=== PATIENT | male | born 1950 | race Caucasian/White ===

== ENCOUNTER 2018-03-01 07:30 | Inpatient (IN) ==
[2018-03-04] MEDS ORDERED: Cardioplegic Irr Soln 2,000 ML IRRIGATION ONE (07:44)
[2018-03-04] MEDS ORDERED: Potassium Chloride Inj 40 MEQ/20 ML Vial ONE ×2 (07:44)
[2018-03-04] MEDS ORDERED: Heparin 10,000 UNITS/10 ML Vial (for IV use) ONE (07:45)
[2018-03-04] MEDS ORDERED: Albumin Human 25% Inj 50 ML IV.SIG ONE (07:46)
[2018-03-04] MEDS ORDERED: Heparin - SQ 10,000 UNITS/ML Vial ONE (08:59)
[2018-03-04] MEDS ORDERED: MethylPREDNISolone Sod Succinate Inj 125 MG/2 ML Vial ONE (08:59)
[2018-03-04] MEDS ORDERED: Metoprolol Tartrate 25 MG Tablet PO ONE (09:56)
[2018-03-04] MEDS ORDERED: Chlorhexidine Gluconate 2% 1 Pack (2 Cloths) TOPICAL ONE (09:56)
[2018-03-04] MEDS ORDERED: Sodium Chlor 0.9% Inj 500 ML IV.SIG SCH (10:00)
[2018-03-04] MEDS ORDERED: Sodium Chloride 0.9% Irr Bot 500 ML, ceFAZolin Inj 500 MG IRRIGATION SCH ×2 (10:15)
[2018-03-04] MEDS ORDERED: Metoprolol Tartrate 25 MG Tablet PO SCH (10:15)
[2018-03-04] MEDS ORDERED: Insulin Regular (For Infusion) 100 UNIT in Sodium Chlor 0.9% Inj 99 ML IV.SIG SCH (11:00)
[2018-03-04] MEDS ORDERED: Chlorhexidine 4% Topical 120 APPLIC/120 ML Bottle TOPICAL SCH (11:00)
[2018-03-04] MEDS ORDERED: ceFAZolin 2 GM/NS 100 ML IV; Q8H IV.SIG SCH ×2 (11:00)
[2018-03-04] MEDS ORDERED: Sodium Chlor 0.9% Inj 77.5 ML, Papaverine Inj 60 MG, Nitroglycerin Inj 100 MCG, dilTIAZ... IRRIGATION SCH ×3 (11:30)
[2018-03-04] MEDS ORDERED: Sodium Chlor 0.9% Inj 250 ML IV.CONT ONE (12:04)
[2018-03-04] MEDS ORDERED: Sodium Chlor 0.9% Inj 100 ML IV.CONT ONE (12:04)
[2018-03-04] MEDS ORDERED: Sodium Bicarbonate 8.4% Inj 50 MEQ/50 ML Syringe IV.CONT ONE (12:04)
[2018-03-04] MEDS ORDERED: Tranexamic Acid Inj 1,000 MG/10 ML Ampul IV.PUSH ONE (13:00)
[2018-03-04] MEDS ORDERED: Heparin - SQ 10,000 UNITS/ML Vial OTHER ONE (13:54)
[2018-03-04] MEDS ORDERED: Dexmedetomidine Inj 200 MCG/2 ML Vial IV.CONT ONE (15:30)
[2018-03-04] MEDS ORDERED: Protamine Sulfate Inj 50 MG/5 ML Vial IV.CONT ONE (15:31)
--- NOTE | 2018-03-04 15:33 | P.PNCV ---
- Note Subjective/Hospital Course: 67/ male presented to [facility] having developed exertional chest pain. He underwent LHC which shoed 2 vessel CAD involving LAD and RCA EF 45-50% PMH: unstable angina, prior [place], HLP PAD ( claudication), HTN, DM, GERD electively admitted today for surgery 03/04 surgery: Objective: Vital Signs - 24 hr 03/04/18 10:17 Temperature 99.1 F Pulse Rate 69 Respiratory Rate 18 Blood Pressure 149/85 H Pulse Oximetry 93 L Labs: Laboratory Results - last 12 hr 03/04/18 03/04/18 09:50 09:55 Nasal Screen MRSA (PCR) Not detected Blood Type O Positive Antibody Screen Negative MTS Gel Crossmatch See Detail Bld Prod Order Comment - Plan (5) Diabetes mellitus (5) Diabetes mellitus Qualifiers: Diabetes mellitus type: type 2
[2018-03-04] MEDS ORDERED: Calcium Chloride Inj 1 GM/10 ML Syringe IV.CONT ONE (15:45)
[2018-03-04] MEDS ORDERED: Post-op Orders (for Pharmacy) OTHER STA (16:03)
[2018-03-04] MEDS ORDERED: RESP: Racemic Epinephrine 2.25% 0.5 ML Neb NEB PRN (16:03)
[2018-03-04] MEDS ORDERED: Potassium Chlor 20 mEq Premix 20 MEQ/100 ML PIGGYBACK IV.SIG PRN ×2 (16:03)
[2018-03-04] MEDS ORDERED: Insulin Regular (For Infusion) 100 UNIT in Sodium Chlor 0.9% Inj 99 ML IV.CONT PRN (16:03)
[2018-03-04] MEDS ORDERED: Albumin Human 5% Inj 250 ML IV.SIG PRN (16:03)
[2018-03-04] MEDS ORDERED: Magnesium Sulfate Inj 2 GM in Sodium Chlor 0.9% Inj 96 ML IV.SIG PRN ×4 (16:03)
[2018-03-04] MEDS ORDERED: Dextrose 50% in Water 50 ML Vial IV.PUSH PRN (16:03)
[2018-03-04] MEDS ORDERED: Clevidipine Inj 25 MG/50 ML VIAL IV.CONT PRN (16:03)
[2018-03-04] MEDS ORDERED: Calcium Chloride Inj 1 GM/10 ML Syringe IV.PUSH PRN (16:03)
[2018-03-04] MEDS ORDERED: Calcium Chloride Inj 1 GM in Sodium Chlor 0.9% Inj 100 ML IV.SIG PRN (16:03)
[2018-03-04] MEDS ORDERED: Dexmedetomidine Inj 200 MCG in Sodium Chlor 0.9% Inj 48 ML IV.CONT PRN (16:03)
--- NOTE | 2018-03-04 16:15 | P.OP ---
- Preoperative Diagnosis (1) CAD (coronary artery disease), [place] coronary artery (2) Unstable angina - Postoperative Diagnosis (1) CAD (coronary artery disease), [place] coronary artery (2) Unstable angina Date of procedure: 03/04/18 Procedure: CABG x 3 POTTER to LAD - good SVG to PDA - fair SVG to D1 - good EVH Anesthesia: FARHANA Surgeon: Juana Garcia MD Clock And Watch Assembler: Joanne Preciado Pathology: none sent Operation and Findings: The risks, benefits, complications, treatment options, and expected outcomes were discussed with the patient. The possibilities of reaction to medication, pulmonary aspiration, perforation of viscus, bleeding, recurrent infection, the need for additional procedures, failure to diagnose a condition, and creating a complication requiring transfusion or operation were discussed with the patient. The patient concurred with the proposed plan, giving informed consent. The site of surgery properly noted/marked. The patient was taken to Operating Room, identified as Jeremias iPerre and the procedure verified as CABG, EVH. A Time Out was held and the above information confirmed. Standard monitoring lines and [place] catheter were placed. General anesthesia was induced. The patient was prepped and draped in a sterile fashion. A median sternotomy was performed and electrocautery was used to obtain hemostasis. The left internal mammary artery was procured as a pedicle from the 7th rib to the 1st rib in the usual manner. Simultaneously left greater saphenous vein was procured from the left leg using a minimally invasive endoscopic technique. The vein was prepared for anastomosis and the leg wound was irrigated and closed in 2 layers. The pericardium was opened and a pericardial sling was created using interrupted 0 silk sutures. The patient was heparinized for cardiopulmonary bypass and the distal mammary pedicle was instrumented for anastomosis. The heart was instrumented for cardiopulmonary bypass in the usual manner. Antegrade blood cardioplegia was employed. The patient was placed on cardiopulmonary bypass. An aortic cross-clamp was applied and the heart was arrested using cold blood cardioplegia. Antegrade cardioplegia was administered after he each anastomosis. After adequate arrest, the distal right coronary circulation was investigated and the PDA was opened with a [place] blade and found to be a 1 millimeter fair target. Saphenous vein was approximated to the PDA artery using a running 7 0 Prolene suture. The graft was measured for length and orientation and the proximal anastomosis was constructed to the ascending aorta using a running 5 0 Prolene suture after creating an aortotomy with a 5 millimeter punch. The 1st diagonal artery was then opened with a [place] blade and found to be a 1.5 millimeter good target. Saphenous vein was approximated to the D1 artery using a running 7 0 Prolene suture. The graft was measured for length and orientation and was suspended from the pericardium. The distal LAD was opened with a [place] blade and found to be a 1.5 millimeter good target. The left internal mammary artery was approximated to the LAD using a running 7 0 Prolene suture. The pedicle was attached to the epicardium using interrupted 5 0 silk suture. The patient was systemically rewarmed and received a hotshot dose of warm blood cardioplegia. The aorta was vented and the proximal anastomosis to the D1 graft was accomplished using a running 5 0 Prolene suture after creating an aortotomy with a 5 millimeter punch. The cross-clamp was removed and all proximal and distal anastomoses were examined for hemostasis. The patient was weaned from cardiopulmonary bypass. Protamine was given. There was no adverse reaction. Decannulation was carried out without incident. Wound was checked for hemostasis which was obtained using electrocautery. A 36 Yi mediastinal and 32 Yi left pleural chest tubes were placed and secured to the skin with 0 silk suture. The sternum was closed with stainless steel wire. The fascia was closed with 1. PDS. The subcutaneous tissue was closed using a running 2-0 Vicryl suture. The skin was closed with 4-0 Monocryl. Sterile dressings were placed. At the end of the operation, all sponge, instruments, and needle counts were correct. The patient was transferred to the CVICU in stable condition. Findings: small pda target XC: 50 min CPB: 66 min Drains: mediastinal x 1 pleural x 1 Complications: none Disposition: to CVICU in stable condition
[2018-03-04] MEDS ORDERED: fentaNYL Citrate Inj 250 MCG/5 ML Ampul ONE (16:55)
--- NOTE | 2018-03-04 17:37 | XR ---
EXAM DATE: 03/04/2018 5:30 PM EDT AGE/SEX: 67 years / Male INDICATIONS: Evaluate for cardiac disease. CLINICAL DATA: This is the patient's initial encounter. Patient reports that signs and symptoms have been present for 1 day and indicates a pain score of Nonresponsive. MEDICAL/SURGICAL HISTORY: Non-responsive. CABG. COMPARISON: No prior exams available for comparison. FINDINGS: A single AP view of the chest was performed. Endotracheal tube with distal tip approximately 6 cm ab ove the buddy at the level of the midclavicular heads. Right IJ central venous catheter with distal tip at the level of the cavoatrial junction. Left-sided chest tube. Mediastinal drain. Nasoenteric tu be. There is likely a moderate left pleural effusion with associated left basilar atelectasis. Mild i nterstitial prominence throughout both lungs. No appreciable pneumothorax. The cardiomediastinal cont ours are mildly prominent. Sternotomy wires. Osseous structures are intact. CONCLUSION: 1. Endotracheal tube, right IJ central venous catheter, nasoenteric tube, mediastinal drain, and lef t chest tube are in place. 2. Probable moderate left pleural effusion with associated atelectasis. 3. Cardiomediastinal contours are mildly prominent. 4. Mild interstitial prominence bilaterally. 5. Findings suggests pulmonary edema, but should be clinically correlated. Electronically signed by: Elayne Burris MD 03/04/2018 5:35 PM EDT
[2018-03-04] MEDS: Mupirocin 2% Nasal Oint Topical Syringe EACH NARE SCH (20:46)
[2018-03-04] MEDS: fentaNYL Citrate Inj 100 MCG/2 ML Ampul IV.PUSH PRN ×2 (21:04→22:24)
[2018-03-04] MEDS: Potassium Chlor 20 mEq Premix 20 MEQ/100 ML PIGGYBACK IV.SIG PRN ×2 (21:14→23:20)
[2018-03-04] MEDS: Amiodarone 200 MG Tablet PO SCH (22:07)
--- NOTE | 2018-03-05 05:20 | XR ---
EXAM DATE: 03/05/2018 4:21 AM EDT AGE/SEX: 67 years / Male INDICATIONS: Shortness of breath, possible pneumothorax. CLINICAL DATA: This is the patient's subsequent encounter. Patient reports that signs and symptoms h ave been present for 2 days and indicates a pain score of 7/10. MEDICAL/SURGICAL HISTORY: None. CABG. COMPARISON: [facility], CHEST 1V SINGLE AP, 03/04/2018. . FINDINGS: Patient has been extubated and NGT removed. Right IJ central line, mediastinal drain and left-sided c hest tube are stable. No significant pneumothorax. Mild bibasilar airspace disease. Cardiomegaly saw contours are stable. Remainder of exam is unchanged. CONCLUSION: 1. Patient has been extubated with NG tube removed. 2. No significant pneumothorax. 3. Evolving expected postoperative features with persistent mild bibasilar airspace disease, likely atelectasis. Electronically signed by: Alfred Hernandez MD 03/05/2018 5:19 AM EDT
[2018-03-05] MEDS: Amiodarone 200 MG Tablet PO SCH ×3 (05:24→21:00)
[2018-03-05 05:53] LABS: Hematocrit 35.3 % (39.0-51.0); Hemoglobin 11.8 gm/dL (13.0-17.0); Mean Corpuscular HGB Conc 33.3 % (32.0-36.0); Mean Corpuscular Volume 92.9 fL (80.0-100.0); Mean Platelet Volume 8.8 fL (7.0-11.0); Platelet Count 162 th/mm3 (150-450); Red Blood Count 3.79 mil/mm3 (4.50-5.90); Red Cell Distribution Width 13.3 % (11.6-17.2); White Blood Count 10.8 th/mm3 (4.0-11.0)
[2018-03-05 06:16] LABS: Anion Gap 9 meq/L (5-15); Blood Urea Nitrogen 13 mg/dL (7-18); Calcium 8.4 mg/dL (8.5-10.1); Carbon Dioxide 24.6 meq/L (21.0-32.0); Chloride 109 meq/L (98-107); Glomerular Filtration Rate Greater Than 89 mL/min (>89); Glucose,Random 131 mg/dL (74-106); Potassium 4.3 meq/L (3.5-5.1); Sodium 143 meq/L (136-145)
[2018-03-05] MEDS: Mupirocin 2% Nasal Oint Topical Syringe EACH NARE SCH ×3 (08:54→21:05)
[2018-03-05] MEDS: Pantoprazole Sodium 20 MG DR Tablet PO SCH (08:54)
[2018-03-05] MEDS ORDERED: Dextrose 50% in Water 50 ML Vial IV.PUSH PRN (10:21)
[2018-03-05] MEDS ORDERED: Bisacodyl 10 MG Supp RECTAL PRN (10:21)
[2018-03-05] MEDS ORDERED: Insulin Detemir Inj 1,000 UNIT/10 ML Vial SQ ONE (10:21)
--- NOTE | 2018-03-05 10:29 | P.PNCV ---
- Note CVT: Post Op Day #: 1 Subjective/Hospital Course: 67/ male presented to [facility] having developed exertional chest pain. He underwent LHC which shoed 2 vessel CAD involving LAD and RCA EF 45-50% PMH: unstable angina, prior [place], HLP PAD ( claudication), HTN, DM, GERD electively admitted today for surgery 03/04 surgery: 03/05/18 Doing well, no complaints Objective: Vital Signs - 24 hr 03/04/18 16:40 03/04/18 18:00 03/04/18 18:25 Temperature 98.0 F 97.1 F L Pulse Rate 60 65 Respiratory Rate 12 17 Blood Pressure 86/52 L 137/63 Pulse Oximetry 96 95 95 03/04/18 19:00 03/04/18 20:00 03/04/18 20:35 Temperature 98.1 F Pulse Rate 62 65 Respiratory Rate 18 Blood Pressure 142/63 H Pulse Oximetry 95 95 03/04/18 20:40 03/04/18 22:00 03/04/18 23:00 Temperature Pulse Rate 74 Respiratory Rate 18 18 Blood Pressure Pulse Oximetry 95 03/05/18 00:00 03/05/18 03:00 03/05/18 04:00 Temperature 97.9 F 98.9 F Pulse Rate 72 77 82 Respiratory Rate 18 18 Blood Pressure 153/69 H 149/65 H Pulse Oximetry 92 L 96 96 03/05/18 07:00 03/05/18 08:00 Temperature 98.3 F Pulse Rate 82 82 Respiratory Rate 16 Blood Pressure 139/61 Pulse Oximetry 95 Labs: Laboratory Results - last 12 hr 03/04/18 03/04/18 03/05/18 22:18 23:47 03:51 WBC RBC Hgb Hct MCV MCH MCHC RDW Plt Count MPV Sodium Potassium Chloride Carbon Dioxide Anion Gap BUN Creatinine Estimated GFR POC Glucose 99 123 H 117 H Random Glucose Calcium Magnesium 03/05/18 03/05/18 03/05/18 05:05 05:05 05:13 WBC 10.8 RBC 3.79 L Hgb 11.8 L Hct 35.3 L MCV 92.9 MCH 31.0 MCHC 33.3 RDW 13.3 Plt Count 162 MPV 8.8 Sodium 143 Potassium 4.3 Chloride 109 H Carbon Dioxide 24.6 Anion Gap 9 BUN 13 Creatinine 0.65 Estimated GFR Greater than 89 POC Glucose 122 H Random Glucose 131 H Calcium 8.4 L Magnesium 2.0 03/05/18 03/05/18 03/05/18 06:33 07:29 08:52 WBC RBC Hgb Hct MCV MCH MCHC RDW Plt Count MPV Sodium Potassium Chloride Carbon Dioxide Anion Gap BUN Creatinine Estimated GFR POC Glucose 86 122 H 181 H Random Glucose Calcium Magnesium Result Diagrams: 03/05/18 05:05 03/05/18 05:05 Imaging: Chest X-Ray 03/05/18 05:00 CONCLUSION: 1. Patient has been extubated with NG tube removed. 2. No significant pneumothorax. 3. Evolving expected postoperative features with persistent mild bibasilar airspace disease, likely atelectasis. Cardiovascular: RRR Pulmonary: CTA GI/: NABS Incision: dry and intact CT: ~660ml/12hrs - Plan (1) CAD (coronary artery disease), [place] coronary artery (3) Hyperlipidemia (4) Hypertension (5) Diabetes mellitus Transfer to stepdown Advance diet Ambulate x 6, up to chair Start BB Cont. statin, ASA Diurese Cont. chest tubes remove pleitez (1) CAD (coronary artery disease), [place] coronary artery Qualifiers: [place] vs. transplanted heart: [place] heart Associated angina: with stable angina Qualified Code(s): I25.118 - Atherosclerotic heart disease of [place] coronary artery with other forms of angina pectoris (3) Hyperlipidemia Qualifiers: Hyperlipidemia type: unspecified Qualified Code(s): E78.5 - Hyperlipidemia, unspecified (4) Hypertension Qualifiers: Hypertension type: essential hypertension Qualified Code(s): I10 - Essential (primary) hypertension (5) Diabetes mellitus Qualifiers: Diabetes mellitus type: type 2 Diabetes mellitus complication status: with circulatory complication Diabetes mellitus complication detail: with other circulatory complications
[2018-03-05] MEDS: Metoprolol Tartrate 25 MG Tablet PO SCH ×2 (11:03→21:03)
--- NOTE | 2018-03-05 11:58 | ECG ---
Date Performed: 03/05/2018 Time Performed: 04:28:32 PTAGE: 67 years EKG: Sinus rhythm Left axis deviation Borderline ECG NO PREVIOUS TRACING DOCTOR: Myron Stack Interpretating Date/Time 03/05/2018 11:56:05
[2018-03-05] MEDS: Insulin NovoLOG Aspart Correctional Sugar Inj SQ SCH ×3 (14:01→22:13)
[2018-03-05] MEDS: Docusate Sodium 100 MG Capsule PO SCH (21:01)
[2018-03-06] MEDS: Metoprolol Inj 5 MG/5 ML Vial IV.PUSH PRN ×2 (00:48→02:28)
[2018-03-06] MEDS: Insulin NovoLOG Aspart Correctional Sugar Inj SQ SCH ×5 (02:09→21:12)
[2018-03-06 04:28] LABS: Baso % (Auto) 0.2 % (0.0-2.0); Eos % (Auto) 0.1 % (0.0-4.0); Hematocrit 33.3 % (39.0-51.0); Hemoglobin 11.1 gm/dL (13.0-17.0); Lymph # (Auto) 2.2 th/mm3 (1.0-4.8); Lymph % (Auto) 16.4 % (9.0-44.0); Mean Corpuscular HGB Conc 33.4 % (32.0-36.0); Mean Corpuscular Hemoglobin 30.9 pg (27.0-34.0); Mean Corpuscular Volume 92.5 fL (80.0-100.0); Mean Platelet Volume 9.1 fL (7.0-11.0); Mono # (Auto) 1.1 th/mm3 (0.0-0.9); Mono % (Auto) 8.2 % (0.0-8.0); Neut # (Auto) 9.9 th/mm3 (1.8-7.7); Neut % (Auto) 75.1 % (16.0-70.0); Platelet Count 164 th/mm3 (150-450); Red Cell Distribution Width 13.4 % (11.6-17.2); White Blood Count 13.2 th/mm3 (4.0-11.0)
[2018-03-06 04:49] LABS: Calcium 8.1 mg/dL (8.5-10.1); Carbon Dioxide 28.6 meq/L (21.0-32.0); Magnesium 1.8 mg/dL (1.5-2.5); Potassium 4.3 meq/L (3.5-5.1)
[2018-03-06] MEDS: Amiodarone 200 MG Tablet PO SCH ×3 (05:50→21:11)
[2018-03-06] MEDS ORDERED: D5W BOLUS OVER IV.SIG ONE (07:30)
[2018-03-06] MEDS ORDERED: Magnesium Sulfate Inj 2 GM in Sodium Chlor 0.9% Inj 96 ML IV.SIG ONE (07:30)
[2018-03-06] MEDS ORDERED: AMIODARONE IV.SIG ONE (07:30)
[2018-03-06] MEDS: Docusate Sodium 100 MG Capsule PO SCH ×2 (08:55→20:13)
[2018-03-06] MEDS: Polyethylene Glycol 3350 17 GM Packet PO SCH (08:55)
[2018-03-06] MEDS: Mupirocin 2% Nasal Oint Topical Syringe EACH NARE SCH ×2 (08:55→21:10)
[2018-03-06] MEDS: Multivitamin/Minerals Therapeutic Tablet PO SCH (08:56)
[2018-03-06] MEDS: Pantoprazole Sodium 20 MG DR Tablet PO SCH (08:56)
[2018-03-06] MEDS: Metoprolol Tartrate 25 MG Tablet PO SCH ×2 (08:58→20:12)
--- NOTE | 2018-03-06 11:07 | P.PNCV ---
- Note CVT: Post Op Day #: 2 Subjective/Hospital Course: 67/ male presented to [facility] having developed exertional chest pain. He underwent LHC which shoed 2 vessel CAD involving LAD and RCA EF 45-50% PMH: unstable angina, prior [place], HLP PAD ( claudication), HTN, DM, GERD electively admitted today for surgery 03/04 surgery: 03/05/18 Doing well, no complaints 03/06/18 c/o nausea. AFIB this morning Objective: Vital Signs - 24 hr 03/05/18 11:21 03/05/18 12:50 03/05/18 13:00 Temperature Pulse Rate 74 Respiratory Rate Blood Pressure Pulse Oximetry 96 92 L 03/05/18 13:30 03/05/18 14:00 03/05/18 15:00 Temperature 98.2 F Pulse Rate 80 85 Respiratory Rate 0 L 18 Blood Pressure 147/71 H Pulse Oximetry 94 L 03/05/18 16:00 03/05/18 17:00 03/05/18 17:28 Temperature Pulse Rate 80 78 Respiratory Rate 18 Blood Pressure Pulse Oximetry 03/05/18 18:00 03/05/18 19:00 03/05/18 20:00 Temperature 99 F Pulse Rate 76 87 88 Respiratory Rate 20 Blood Pressure 151/77 H Pulse Oximetry 90 L 03/05/18 21:00 03/05/18 21:26 03/05/18 22:00 Temperature Pulse Rate 96 H 90 Respiratory Rate Blood Pressure Pulse Oximetry 98 03/05/18 23:00 03/06/18 00:00 03/06/18 01:00 Temperature 98.8 F Pulse Rate 90 88 104 H Respiratory Rate 20 Blood Pressure 141/78 H Pulse Oximetry 90 L 03/06/18 02:00 03/06/18 02:06 03/06/18 03:00 Temperature 98.7 F Pulse Rate 114 H 116 H 103 H Respiratory Rate 20 Blood Pressure 142/87 H Pulse Oximetry 91 L 90 L 03/06/18 04:00 03/06/18 05:00 03/06/18 06:00 Temperature Pulse Rate 114 H 106 H 114 H Respiratory Rate Blood Pressure Pulse Oximetry 03/06/18 07:00 03/06/18 08:00 03/06/18 09:00 Temperature 98.5 F Pulse Rate 133 H 110 H 98 H Respiratory Rate 20 Blood Pressure 122/60 Pulse Oximetry 92 L 03/06/18 10:00 Temperature Pulse Rate 99 H Respiratory Rate Blood Pressure Pulse Oximetry Labs: Laboratory Results - last 12 hr 03/06/18 03/06/18 03/06/18 01:58 03:30 03:30 WBC 13.2 H RBC 3.60 L Hgb 11.1 L Hct 33.3 L MCV 92.5 MCH 30.9 MCHC 33.4 RDW 13.4 Plt Count 164 MPV 9.1 Neut % (Auto) 75.1 H Lymph % (Auto) 16.4 [place] % (Auto) 8.2 H Eos % (Auto) 0.1 Baso % (Auto) 0.2 Neut # (Auto) 9.9 H Lymph # (Auto) 2.2 [place] # (Auto) 1.1 H Eos # (Auto) 0.0 Baso # (Auto) 0.0 WBC Differential . Differential Comment Auto diff final Sodium 139 Potassium 4.3 Chloride 104 Carbon Dioxide 28.6 Anion Gap 6 BUN 16 Creatinine 0.89 Estimated GFR 85 L POC Glucose 132 H Random Glucose 124 H Calcium 8.1 L Magnesium 1.8 03/06/18 05:52 WBC RBC Hgb Hct MCV MCH MCHC RDW Plt Count MPV Neut % (Auto) Lymph % (Auto) [place] % (Auto) Eos % (Auto) Baso % (Auto) Neut # (Auto) Lymph # (Auto) [place] # (Auto) Eos # (Auto) Baso # (Auto) WBC Differential Differential Comment Sodium Potassium Chloride Carbon Dioxide Anion Gap BUN Creatinine Estimated GFR POC Glucose 119 H Random Glucose Calcium Magnesium Result Diagrams: 03/06/18 03:30 03/06/18 03:30 Imaging: Chest X-Ray 03/05/18 05:00 CONCLUSION: 1. Patient has been extubated with NG tube removed. 2. No significant pneumothorax. 3. Evolving expected postoperative features with persistent mild bibasilar airspace disease, likely atelectasis. Cardiovascular: IRR Telemetry: AFIB Pulmonary: CTA GI/: NABS Incision: dry and intact CT: ~50ml/12hrs - Plan (1) CAD (coronary artery disease), [place] coronary artery (3) Hyperlipidemia (4) Hypertension (5) Diabetes mellitus IV amio bolus and MgSO4 for AFIB Diurese Remove chest tubes Ambulate/up to chair (1) CAD (coronary artery disease), [place] coronary artery Qualifiers: [place] vs. transplanted heart: [place] heart Associated angina: with stable angina Qualified Code(s): I25.118 - Atherosclerotic heart disease of [place] coronary artery with other forms of angina pectoris (3) Hyperlipidemia Qualifiers: Hyperlipidemia type: unspecified Qualified Code(s): E78.5 - Hyperlipidemia, unspecified (4) Hypertension Qualifiers: Hypertension type: essential hypertension Qualified Code(s): I10 - Essential (primary) hypertension (5) Diabetes mellitus Qualifiers: Diabetes mellitus type: type 2 Diabetes mellitus complication status: with circulatory complication Diabetes mellitus complication detail: with other circulatory complications
[2018-03-06] MEDS: Mag Sulf 1 gm/100 ml Premix 100 ML IV.SIG SCH (12:33)
[2018-03-07] MEDS: Amiodarone 200 MG Tablet PO SCH ×2 (05:30→20:25)
[2018-03-07] MEDS: Docusate Sodium 100 MG Capsule PO SCH ×2 (08:44→20:24)
[2018-03-07] MEDS: Multivitamin/Minerals Therapeutic Tablet PO SCH (08:44)
[2018-03-07] MEDS: Mupirocin 2% Nasal Oint Topical Syringe EACH NARE SCH ×2 (08:44→20:25)
[2018-03-07] MEDS: Insulin NovoLOG Aspart Correctional Sugar Inj SQ SCH ×4 (08:44→20:26)
[2018-03-07] MEDS: Polyethylene Glycol 3350 17 GM Packet PO SCH (08:45)
[2018-03-07] MEDS: Metoprolol Tartrate 25 MG Tablet PO SCH ×2 (08:46→20:25)
[2018-03-07] MEDS: Pantoprazole Sodium 20 MG DR Tablet PO SCH (08:46)
--- NOTE | 2018-03-07 10:07 | P.PNCV ---
- Note Subjective/Hospital Course: 67/ male presented to [facility] having developed exertional chest pain. He underwent LHC which shoed 2 vessel CAD involving LAD and RCA EF 45-50% PMH: unstable angina, prior [place], HLP PAD ( claudication), HTN, DM, GERD electively admitted today for surgery 03/04 surgery: 03/05/18 Doing well, no complaints 03/06/18 c/o nausea. AFIB this morning 03/07 Back in NSR remains on 6 liter nasal cannula / wean as tolerated CXR pending , increase diuresis no further nausea labs pending / pulm toileting rediscussed with pt Objective: Vital Signs - 24 hr 03/06/18 11:00 03/06/18 12:00 03/06/18 13:00 Temperature 98.4 F Pulse Rate 98 H 89 90 Respiratory Rate 20 Blood Pressure 116/74 Pulse Oximetry 94 L 03/06/18 14:00 03/06/18 15:00 03/06/18 16:00 Temperature 98.6 F Pulse Rate 94 H 74 78 Respiratory Rate 20 Blood Pressure 118/72 Pulse Oximetry 95 03/06/18 17:00 03/06/18 18:19 03/06/18 19:00 Temperature 98.6 F Pulse Rate 82 82 81 Respiratory Rate 18 Blood Pressure 120/61 Pulse Oximetry 90 L 03/06/18 20:00 03/06/18 20:30 03/06/18 21:00 Temperature Pulse Rate 79 80 Respiratory Rate Blood Pressure Pulse Oximetry 92 L 03/06/18 22:00 03/06/18 23:00 03/07/18 00:00 Temperature 97.9 F Pulse Rate 82 80 76 Respiratory Rate 22 Blood Pressure 145/70 H Pulse Oximetry 89 L 03/07/18 01:00 03/07/18 01:32 03/07/18 02:00 Temperature Pulse Rate 74 140 H 82 Respiratory Rate Blood Pressure Pulse Oximetry 03/07/18 03:00 03/07/18 04:00 03/07/18 05:00 Temperature 98.7 F Pulse Rate 79 74 74 Respiratory Rate 20 Blood Pressure 130/66 Pulse Oximetry 90 L 03/07/18 05:48 03/07/18 07:00 03/07/18 07:25 Temperature 98.1 F Pulse Rate 79 75 71 Respiratory Rate 20 Blood Pressure 129/67 Pulse Oximetry 90 L 03/07/18 07:26 03/07/18 08:00 03/07/18 09:00 Temperature Pulse Rate 73 71 Respiratory Rate Blood Pressure Pulse Oximetry 90 L 03/07/18 09:17 Temperature Pulse Rate Respiratory Rate 18 Blood Pressure Pulse Oximetry GENERAL: A&O x 3 SKIN: Warm and dry. prevena dressing in place to chest , incision intact to left leg HEAD: Normocephalic. EYES: No scleral icterus. No injection or drainage. NECK: Supple, trachea midline. No JVD or lymphadenopathy. CARDIOVASCULAR: Regular rate and rhythm without murmurs, gallops, or rubs. RESPIRATORY: Breath sounds equal bilaterally. No accessory muscle use. diminished R>L GASTROINTESTINAL: Abdomen soft, non-tender, nondistended. MUSCULOSKELETAL: No cyanosis, or edema. BACK: Nontender without obvious deformity. No CVA tenderness. Labs: Laboratory Results - last 12 hr 03/04/18 03/07/18 09:55 07:24 POC Glucose 111 H MTS Gel Crossmatch See Detail Result Diagrams: 03/06/18 03:30 03/06/18 03:30 - Plan (1) CAD (coronary artery disease), [place] coronary artery Plan: ASA, statin , amiodarone, BB diuresis OOB, ambulate pulm toileting eval for C at discharge (3) Hyperlipidemia Plan: on statin (4) Hypertension Plan: stable (5) Diabetes mellitus Plan: resume low dose metformin (1) CAD (coronary artery disease), [place] coronary artery Qualifiers: [place] vs. transplanted heart: [place] heart Associated angina: with stable angina Qualified Code(s): I25.118 - Atherosclerotic heart disease of [place] coronary artery with other forms of angina pectoris (3) Hyperlipidemia Qualifiers: Hyperlipidemia type: unspecified Qualified Code(s): E78.5 - Hyperlipidemia, unspecified (4) Hypertension Qualifiers: Hypertension type: essential hypertension Qualified Code(s): I10 - Essential (primary) hypertension (5) Diabetes mellitus Qualifiers: Diabetes mellitus type: type 2 Diabetes mellitus complication status: with circulatory complication Diabetes mellitus complication detail: with other circulatory complications
[2018-03-07 10:39] LABS: Calcium 8.5 mg/dL (8.5-10.1); Carbon Dioxide 28.1 meq/L (21.0-32.0); Magnesium 1.8 mg/dL (1.5-2.5); Phosphorus 2.4 mg/dL (2.5-4.9); Potassium 4.4 meq/L (3.5-5.1)
[2018-03-07] MEDS ORDERED: Potassium Phos/Sodium Phos 250 MG Tablet PO ONE (11:30)
[2018-03-07] MEDS: Mag Sulf 1 gm/100 ml Premix 100 ML IV.SIG SCH ×2 (12:19→13:09)
--- NOTE | 2018-03-07 12:46 | P.DCO ---
- Diagnosis (2) CAD (coronary artery disease), [place] coronary artery (3) Hypertension (4) Diabetes mellitus - Occupational Therapy Order: Fine motor coordination - Home Health Nursing Order: Medical education, Signs/symptoms of disease process, Diabetic education , Wound care and dressing changes, Nursing assessment with vital signs Instructions: Heart and Vascular Surgery patients *Special attention to sternal dressing Mandatory frequency Assess and evaluation, 4 days in a row The next week 3X week 2 times a week for 4 weeks 1 time a week for 5 weeks Schedule Heart and Vascular patients for full 60 day certification period Initial visit Review Open Heart Surgery Discharge Instructions (Sternal precautions, Activity, Elastic hose, Incision care, Driving, Incentive spirometry, Smoking, [place], Work and other) Need Betadine to paint incision Medication reconciliation Importance of follow up care/ check on appointments Make calendar record temperature daily When to call [facility] nurse, review instructions, phone list Incentive Spirometry, demonstration Visit 1- Begin discharge instruction for patient family and/ or caregiver using teach back method- Signs and symptoms of infection Disease characteristics Medicines and side effects Foods and nutrition/ appetite Infection control/ hand washing/ hygiene Visit 2- Continue teaching Discharge instructions- include additional information on smoking cessation , sternal dressing (sternal vac) Visit 3- Continue teaching- Cough and deep breathing, incision monitoring. Choose my plate Visit 4- Continue teaching- Discuss limitations Discuss how they are feeling Discuss progress toward goals Remaining visits- continue teaching and monitoring For any questions please call : Wednesday 8am-5pm Heart & Vascular Surgery Office ( Dr. Sullivan & Dr. Garcia), After Hours / Nights (5pm -8am) Weekends and Holidays Please call [facility] ([facility]) Charge Nurse Incentive spirometry Q1 hr x 10, while awake, also use acapella device hourly whole awake Sternal Breast Bone Precautions: NO pushing or pulling, ( pt must use sternal pillow to support chest with all activities and with coughing ( takes up to 3 months breast bone to heal ) Daily incision care: ok to shower daily, no tub bath. Wash all incisions with liquid dial soap, clean wash cloth to each site, rinse and pat dry. Observe for any signs of infection, such as drainage which is dark yellow, fishman, green or foul smelling. Immediately report to the surgeon any drainage from the chest incision, or legs, and for any abnormal drainage from the chest tube sites. Notify surgeon if any temp >101.5 degrees F. When specialty dressing removed/ or if you do not have one, continue to shower daily as above, then rinse and pat incision dry and paint with betadine daily x 5 days. Allow steri strips to fall off if you have any. Avoid lotions, creams, salves, oils, etc. for the first month Please see attached forms for additional instructions regarding post Open Heart specialty wound vacuum dressings. ROBBIE or Prevena , Dressing to be removed by Nursing staff on ___03/11/18____ For Dr. Garcia patients , please obtain CBC, BMP, PA & Lat CXR in 2 weeks, results to Dr. Garcia ( prescription will be given) ( ) (Tele: [phone]) , F/U appointment: as per DC instructions: PCP in 2 weeks, CV surgeon 2 weeks, Cage Maker 3-4 weeks For any questions regarding incisions/ dressing / meds / post op care or above Symptoms, Wednesday 8am-5pm Heart & Vascular Surgery Office ( Dr. Sullivan & Dr. Garcia), After Hours / Nights (5pm -8am) Weekends and Holidays Please call [facility] ([facility]) Charge Nurse PREVENA Single Use Negative Wound Therapy System Caregiver Instruction Sheet 1. A Prevena dressing system was applied to the chest incision during surgery , to promote wound healing. It works via a suction device (negative pressure wound therapy) to remove low to moderate levels of exudate (drainage) and infectious materials. We recommend that the device stay in place for up to seven days, from day of surgery. 2. Day of Surgery__03/04/18 Day of Removal ____03/11/18 3. The dressing should only be removed by a health director of medicare. Please arrange removal of device to coincide with Home Health visit and or with Nursing staff at Rehab 4. If skin reddening or irritation of skin occurs, or excessive drainage, please notify the Cardiovascular Surgeons office at [phone]. 5. Light showering is permissible; however the pump should be disconnected and placed in safe location, where it will not get wet. The dressing should not be exposed to direct spray or submerged in water. No bath tub / shower only. Ensure the end of the tubing attached to the dressing is facing down so that water does not enter the top of the tube. 6. To remove Prevena dressing: press purple button to turn off device / remove the suction. Then disconnect the tubing from the pump. The fixation strips should be stretched away from the skin and the dressing lifted at one corner and peeled back until it has been fully removed. 7. After removal, it is ok to shower daily using liquid dial soap and clean wash cloth, rinse and pat dry, and leave incision open to air dry. For any concerns regarding Prevena dressing, and or wounds, please contact Monica Cruz, patient navigator at [phone] or notify the Cardiovascular Surgeons office at [phone]. - Certification I have seen patient Jeremias Pierre on 03/07/18. My clinical findings support the need for the requested home health care services because: Deconditioned with increased weakness I certify that my clinical findings support that this patient is homebound because: Post-op weakness (2) CAD (coronary artery disease), [place] coronary artery Qualifiers: [place] vs. transplanted heart: [place] heart Associated angina: with stable angina Qualified Code(s): I25.118 - Atherosclerotic heart disease of [place] coronary artery with other forms of angina pectoris (3) Hypertension Qualifiers: Hypertension type: essential hypertension Qualified Code(s): I10 - Essential (primary) hypertension (4) Diabetes mellitus Qualifiers: Diabetes mellitus type: type 2 Diabetes mellitus complication status: with circulatory complication Diabetes mellitus complication detail: with other circulatory complications
--- NOTE | 2018-03-07 13:03 | XR ---
EXAM DATE: 03/07/2018 12:46 PM EDT AGE/SEX: 67 years / Male INDICATIONS: Post chest tube removal, evaluate for pneumothorax. CLINICAL DATA: This is the patient's subsequent encounter. Patient reports that signs and symptoms h ave been present for 4 - 6 days and indicates a pain score of 7/10. MEDICAL/SURGICAL HISTORY: Cardiovascular disease. CABG. COMPARISON: [facility] [place], CHEST 1V SINGLE AP, 03/05/2018. . FINDINGS: Median sternotomy wires are noted status post cardiac surgery. The heart remains enlarged. Right inte rnal jugular central line has its tip in the right atrium. Bibasilar atelectasis is noted. Left-sided chest tube has been removed. No pneumothorax is noted. CONCLUSION: 1. No pneumothorax status post removal of left chest tube. 2. Bibasilar atelectasis. 3. Cardiomegaly. Electronically signed by: Dave Shaver MD 03/07/2018 1:01 PM EDT
[2018-03-07 13:43] LABS: Prothrombin Time 10.5 sec (9.8-11.6)
--- NOTE | 2018-03-07 16:28 | US ---
EXAM DATE: 03/07/2018 4:18 PM EDT AGE/SEX: 67 years / Male INDICATIONS: Left pleural effusion. CLINICAL DATA: This is the patient's initial encounter. Patient reports that signs and symptoms have been present for 1 day and indicates a pain score of 5/10. MEDICAL/SURGICAL HISTORY: . Coronary artery disease. Diabetes. Myocardial infarction. Hyperlipi demia. Tonsillectomy. Cataract surgery. COMPARISON: No prior exams available for comparison. FINDINGS: A tiny amount of simple appearing left pleural fluid is identified by ultrasound. The estimated fluid volume noted on the images is 83 mL based on the ultrasound measurements, though this likely overest imates the true amount of fluid that is present. No skin marking was performed, as the tiny amount of left pleural fluid was deemed inadequate to safely perform thoracentesis. The distance from the ski n to the parietal pleura measures 2.2 cm. CONCLUSION: 1. Tiny amount of left pleural fluid is identified, but deemed inadequate to safely perform thoracen tesis. Therefore no skin marking was performed. Electronically signed by: Elayne Burris MD 03/07/2018 4:26 PM EDT
--- NOTE | 2018-03-07 17:00 | US ---
EXAM DATE: 03/07/2018 4:48 PM EDT AGE/SEX: 67 years / Male INDICATIONS: Right pleural effusion. CLINICAL DATA: This is the patient's initial encounter. Patient reports that signs and symptoms have been present for 1 day and indicates a pain score of 5/10. MEDICAL/SURGICAL HISTORY: . Coronary artery disease. Diabetes. Myocardial infarction. Hyperlipi demia. Tonsillectomy. Cataract removal. COMPARISON: [facility] [place], [place] CHEST LEFT, 03/07/2018. [facility] [place], CHEST 1V SINGLE AP, 03/07/2018. . FINDINGS: A small amount of simple appearing right pleural fluid is identified by ultrasound. The estimated flu id volume noted on the images is 331 mL based on the ultrasound measurements, though this likely over estimates the true amount of fluid that is present. No skin marking was performed, as the small amoun t of right pleural fluid was deemed inadequate to safely perform thoracentesis. CONCLUSION: 1. Small amount of right pleural fluid is identified, but was deemed inadequate to safely perform th oracentesis. Therefore no skin marking was performed. Electronically signed by: Elayne Burris MD 03/07/2018 4:59 PM EDT
[2018-03-08 04:54] LABS: Hematocrit 28.8 % (39.0-51.0); Hemoglobin 9.7 gm/dL (13.0-17.0); Mean Corpuscular HGB Conc 33.6 % (32.0-36.0); Mean Corpuscular Hemoglobin 31.4 pg (27.0-34.0); Mean Corpuscular Volume 93.4 fL (80.0-100.0); Mean Platelet Volume 8.2 fL (7.0-11.0); Platelet Count 161 th/mm3 (150-450); Red Blood Count 3.09 mil/mm3 (4.50-5.90); Red Cell Distribution Width 12.8 % (11.6-17.2)
[2018-03-08 05:32] LABS: Anion Gap 10 meq/L (5-15); Blood Urea Nitrogen 20 mg/dL (7-18); Calcium 8.1 mg/dL (8.5-10.1); Carbon Dioxide 29.5 meq/L (21.0-32.0); Chloride 100 meq/L (98-107); Glomerular Filtration Rate Greater Than 89 mL/min (>89); Glucose,Random 116 mg/dL (74-106); Magnesium 2.2 mg/dL (1.5-2.5); Potassium 4.2 meq/L (3.5-5.1); Sodium 139 meq/L (136-145)
[2018-03-08] MEDS: Polyethylene Glycol 3350 17 GM Packet PO SCH (08:05)
[2018-03-08] MEDS: Insulin NovoLOG Aspart Correctional Sugar Inj SQ SCH ×4 (08:05→22:03)
[2018-03-08] MEDS: Multivitamin/Minerals Therapeutic Tablet PO SCH (08:07)
[2018-03-08] MEDS: Metoprolol Tartrate 25 MG Tablet PO SCH ×2 (08:07→22:02)
[2018-03-08] MEDS: Pantoprazole Sodium 20 MG DR Tablet PO SCH (08:07)
[2018-03-08] MEDS: Amiodarone 200 MG Tablet PO SCH ×2 (08:07→22:02)
[2018-03-08] MEDS: Mupirocin 2% Nasal Oint Topical Syringe EACH NARE SCH ×2 (08:08→22:03)
[2018-03-08] MEDS: Docusate Sodium 100 MG Capsule PO SCH ×2 (08:08→22:03)
[2018-03-08] MEDS ORDERED: Amiodarone Inj 150 MG in Dextrose 5% in Water Inj 97 ML IV.SIG ONE ×2 (08:32)
--- NOTE | 2018-03-08 10:06 | P.PNCV ---
- Note Subjective/Hospital Course: 67/ male presented to [facility] having developed exertional chest pain. He underwent LHC which shoed 2 vessel CAD involving LAD and RCA EF 45-50% PMH: unstable angina, prior KS, HLP PAD ( claudication), HTN, DM, GERD electively admitted today for surgery 03/04 surgery: 03/05/18 Doing well, no complaints 03/06/18 c/o nausea. AFIB this morning 03/07 Back in NSR remains on 6 liter nasal cannula / wean as tolerated CXR pending , increase diuresis no further nausea labs pending / pulm toileting rediscussed with pt 03/08 pt underwent US of right and left chest small bilateral effusion, deemed not significant to drain pt will need aggressive pulm toileting for atelectasis now down to 5 liters, back in Afib/ amiodarone bolus given now start on eliquis Objective: Vital Signs - 24 hr 03/07/18 11:00 03/07/18 12:00 03/07/18 13:00 Temperature 98.7 F Pulse Rate 76 74 74 Respiratory Rate 21 Blood Pressure 127/69 Pulse Oximetry 91 L 03/07/18 15:00 03/07/18 15:31 03/07/18 15:47 Temperature 98.9 F Pulse Rate 75 77 Respiratory Rate 22 21 20 Blood Pressure 116/63 Pulse Oximetry 90 L 03/07/18 16:00 03/07/18 17:00 03/07/18 18:00 Temperature Pulse Rate 76 84 78 Respiratory Rate Blood Pressure Pulse Oximetry 03/07/18 19:15 03/07/18 20:00 03/07/18 20:33 Temperature 98.2 F Pulse Rate 87 89 76 Respiratory Rate 18 18 Blood Pressure 118/67 Pulse Oximetry 91 L 03/07/18 21:00 03/07/18 22:00 03/07/18 23:00 Temperature 98.6 F Pulse Rate 90 75 73 Respiratory Rate 15 Blood Pressure 111/63 Pulse Oximetry 92 L 03/08/18 00:00 03/08/18 01:00 03/08/18 02:00 Temperature Pulse Rate 74 72 72 Respiratory Rate Blood Pressure Pulse Oximetry 03/08/18 03:00 03/08/18 03:49 03/08/18 04:00 Temperature 98.6 F Pulse Rate 71 72 74 Respiratory Rate 15 14 Blood Pressure 118/60 Pulse Oximetry 91 L 03/08/18 05:00 03/08/18 06:00 03/08/18 07:00 Temperature 97.9 F Pulse Rate 79 83 105 H Respiratory Rate 25 H Blood Pressure 126/74 Pulse Oximetry 91 L 03/08/18 08:00 03/08/18 09:00 03/08/18 09:49 Temperature Pulse Rate 138 H 117 H 109 H Respiratory Rate 18 Blood Pressure Pulse Oximetry 03/08/18 09:50 Temperature Pulse Rate Respiratory Rate Blood Pressure Pulse Oximetry 93 L Labs: Laboratory Results - last 12 hr 03/08/18 03/08/18 03/08/18 04:43 04:43 07:50 WBC 7.0 RBC 3.09 L Hgb 9.7 L Hct 28.8 L MCV 93.4 MCH 31.4 MCHC 33.6 RDW 12.8 Plt Count 161 MPV 8.2 Sodium 139 Potassium 4.2 Chloride 100 Carbon Dioxide 29.5 Anion Gap 10 BUN 20 H Creatinine 0.84 Estimated GFR Greater than 89 POC Glucose 113 H Random Glucose 116 H Calcium 8.1 L Magnesium 2.2 Result Diagrams: 03/08/18 04:43 03/08/18 04:43 - Plan (1) S/P CABG x 3 Plan: ASA, statin BB pulm toileting nebs ezpap acapella OOB/ ambulate (2) CAD (coronary artery disease), [place] coronary artery Plan: ASA, statin , amiodarone, BB diuresis OOB, ambulate pulm toileting eval for HHC at discharge (3) Hypertension Plan: stable (4) Diabetes mellitus Plan: resume low dose metformin (6) Hyperlipidemia Plan: on statin (7) Atelectasis of both lungs Plan: wean 02 as tolerated, duonebs / ezpap IS acapella (2) CAD (coronary artery disease), [place] coronary artery Qualifiers: [place] vs. transplanted heart: [place] heart Associated angina: with stable angina Qualified Code(s): I25.118 - Atherosclerotic heart disease of [place] coronary artery with other forms of angina pectoris (3) Hypertension Qualifiers: Hypertension type: essential hypertension Qualified Code(s): I10 - Essential (primary) hypertension (4) Diabetes mellitus Qualifiers: Diabetes mellitus type: type 2 Diabetes mellitus complication status: with circulatory complication Diabetes mellitus complication detail: with other circulatory complications (6) Hyperlipidemia Qualifiers: Hyperlipidemia type: unspecified Qualified Code(s): E78.5 - Hyperlipidemia, unspecified
--- NOTE | 2018-03-09 04:13 | XR ---
EXAM DATE: 03/09/2018 3:48 AM EDT AGE/SEX: 67 years / Male INDICATIONS: Short of breath. CLINICAL DATA: This is the patient's subsequent encounter. Patient reports that signs and symptoms h ave been present for 4 - 6 days and indicates a pain score of 0/10. MEDICAL/SURGICAL HISTORY: Cardiovascular disease. CABG. COMPARISON: [facility], CHEST 1V SINGLE AP, 03/07/2018. . FINDINGS: There has been interval decrease in bibasilar infiltrate and effusions. Cardiac contours are grossly unchanged. CONCLUSION: Significant improvement in aeration. Electronically signed by: Jeremias Singh MD 03/09/2018 4:12 AM EDT
[2018-03-09 04:24] LABS: Hematocrit 30.3 % (39.0-51.0); Hemoglobin 10.1 gm/dL (13.0-17.0); Mean Corpuscular HGB Conc 33.5 % (32.0-36.0); Mean Corpuscular Hemoglobin 31.1 pg (27.0-34.0); Mean Platelet Volume 8.6 fL (7.0-11.0); Platelet Count 218 th/mm3 (150-450); Red Blood Count 3.25 mil/mm3 (4.50-5.90); Red Cell Distribution Width 13.2 % (11.6-17.2); White Blood Count 6.3 th/mm3 (4.0-11.0)
[2018-03-09 04:55] LABS: Calcium 8.4 mg/dL (8.5-10.1); Carbon Dioxide 28.7 meq/L (21.0-32.0); Magnesium 1.7 mg/dL (1.5-2.5); Potassium 3.9 meq/L (3.5-5.1)
[2018-03-09] MEDS: Pantoprazole Sodium 20 MG DR Tablet PO SCH (08:23)
[2018-03-09] MEDS: Multivitamin/Minerals Therapeutic Tablet PO SCH (08:23)
[2018-03-09] MEDS: Amiodarone 200 MG Tablet PO SCH ×2 (08:24→22:15)
[2018-03-09] MEDS: Metoprolol Tartrate 25 MG Tablet PO SCH ×2 (08:24→22:15)
[2018-03-09] MEDS: Mupirocin 2% Nasal Oint Topical Syringe EACH NARE SCH ×2 (08:24→22:15)
[2018-03-09] MEDS: Polyethylene Glycol 3350 17 GM Packet PO SCH (08:24)
[2018-03-09] MEDS: Docusate Sodium 100 MG Capsule PO SCH ×2 (08:24→22:15)
[2018-03-09] MEDS: Insulin NovoLOG Aspart Correctional Sugar Inj SQ SCH ×4 (08:28→22:15)
[2018-03-09] MEDS: Mag Sulf 1 gm/100 ml Premix 100 ML IV.SIG SCH ×2 (09:08→10:22)
[2018-03-10] MEDS: Insulin NovoLOG Aspart Correctional Sugar Inj SQ SCH (08:09)
[2018-03-10] MEDS: Amiodarone 200 MG Tablet PO SCH (08:36)
[2018-03-10] MEDS: Pantoprazole Sodium 20 MG DR Tablet PO SCH (08:36)
[2018-03-10] MEDS: Multivitamin/Minerals Therapeutic Tablet PO SCH (08:36)
[2018-03-10] MEDS: Metoprolol Tartrate 25 MG Tablet PO SCH (08:37)
[2018-03-10] MEDS: Polyethylene Glycol 3350 17 GM Packet PO SCH (08:38)
[2018-03-10] MEDS: Docusate Sodium 100 MG Capsule PO SCH (08:38)
[2018-03-10] MEDS: Mupirocin 2% Nasal Oint Topical Syringe EACH NARE SCH (08:38)
[2018-03-10 11:38] VITALS: BP 149/80; RESP 16; TEMP 97.9; O2SAT 93
[2018-03-10 11:39] VITALS: PULSE 78
--- NOTE | 2018-03-25 14:16 | P.DS ---
Date of admission: 03/04/18 08:38 Primary care physician: Dr Milena Anderson Attending physician on discharge: Juana Garcia Anticipated date of discharge: 03/10/18 Brief History from admission: 67/ male presented to [facility] having developed exertional chest pain. He underwent LHC which shoed 2 vessel CAD involving LAD and RCA EF 45-50% PMH: unstable angina, prior MD, HLP PAD ( claudication), HTN, DM, GERD electively admitted today for surgery Patient update on day of discharge: pt doing well , intermittent afib, continue eliquis and po amiodarone now on room air DS: Diagnosis - Discharge Diagnosis (1) S/P CABG x 3 Status: Acute (2) CAD (coronary artery disease), [place] coronary artery Status: Acute (3) Hypertension Status: Acute (4) Diabetes mellitus Status: Acute (5) Unstable angina Status: Acute (6) Hyperlipidemia Status: Acute (7) Atelectasis of both lungs Status: Acute DS: Medications - Discharge Medications Prescriptions: oxycodone-acetaminophen 1 tab PO Q4HR #40 tab amiodarone 200 mg PO Q12HR #28 tab apixaban [Eliquis] 5 mg PO BID #60 tab docusate sodium [DOK] 100 mg PO BID #30 cap losartan 25 mg PO DAILY #30 tab metoprolol tartrate 25 mg PO BID #60 tab DS: Summary Hospital Course: 03/04 surgery: 03/05/18 Doing well, no complaints 03/06/18 c/o nausea. AFIB this morning 03/07 Back in NSR remains on 6 liter nasal cannula / wean as tolerated CXR pending , increase diuresis no further nausea labs pending / pulm toileting rediscussed with pt 03/08 pt underwent US of right and left chest small bilateral effusion, deemed not significant to drain pt will need aggressive pulm toileting for atelectasis now down to 5 liters, back in Afib/ amiodarone bolus given now start on eliquis CONCLUSION: 1. Small amount of right pleural fluid is identified, but was deemed inadequate to safely perform thoracentesis. Therefore no skin marking was performed. CONCLUSION: 1. Tiny amount of left pleural fluid is identified, but deemed inadequate to safely perform thoracentesis. Therefore no skin marking was performed. 03/09 weaned down to 2 liter nasal cannula continue BB amiodarone and eliquis for possible dc home in am - Time Spent with Patient Total time spent providing and/or coordinating discharge services: Greater than 30 minutes - Quality: VTE Deep Vein Thrombosis/Pulmonary Embolism Present on Admission: No Exam - Constitutional no acute distress - Routine HEENT Exam Head: Present: normocephalic, atraumatic Eye: Present: EOMI, normal accommodation - Routine Neck Exam Present: supple - Routine Chest/Breast/Axilla Exam Chest wall: Present: tenderness - Routine Respiratory Exam Present: CTA bilaterally - Routine Cardiovascular Exam Present: RRR, S1, S2, irregularly irregular - Routine Abdominal Exam Present: soft, normoactive bowel sounds - Routine Extremities Exam Present: full ROM, pulses intact - Routine Skin Exam Present: intact, wounds Comments: sternal incision intact and well approximated - Routine Neurological Exam Present: alert, oriented X3, CN II-XII intact Results Procedures completed during hospitalization: Date of procedure: 03/04/18 Procedure: CABG x 3 POTTER to LAD - good SVG to PDA - fair SVG to D1 - good EVH - Impressions ITS Impressions Chest Ultrasound 03/07/18 00:00 CONCLUSION: 1. Small amount of right pleural fluid is identified, but was deemed inadequate to safely perform thoracentesis. Therefore no skin marking was performed. Chest X-Ray 03/09/18 06:00 CONCLUSION: Significant improvement in aeration. Discharge Plan - Discharge Disposition Patient Disposition: W/Home Health Service - Discharge Condition Condition: Good - Discharge Order Discharge Orders: Discharge Order (Routine); Ordered 03/10/18 Ordered By: Delores Hayes - Discharge Details Anticipated Discharge Date: 03/10/18 Discharge Comment: after walk test results - Physicians Team Primary Care Provider: [facility],Natalie Attending Provider: Juana Garcia Other Providers: [employer] ; [facility],Ag[facility] - Rxs /Orders / Referrals /Forms Prescriptions: New amiodarone 200 mg Tablet 200 mg PO Q12HR Qty: 28 RF: 0 apixaban [Eliquis] 5 mg Tablet 5 mg PO BID Qty: 60 RF: 2 docusate sodium [DOK] 100 mg Capsule 100 mg PO BID Qty: 30 RF: 0 losartan 25 mg Tablet 25 mg PO DAILY Qty: 30 RF: 2 metoprolol tartrate 25 mg Tablet 25 mg PO BID Qty: 60 RF: 2 oxycodone-acetaminophen 5-325 mg Tablet 1 tab PO Q4HR Qty: 40 RF: 0 Continue aspirin [Adult Low Dose Aspirin] 81 mg Tablet,Delayed Release (Dr/Ec) 81 mg PO DAILY cholecalciferol (vitamin D3) [Vitamin D3] 2,000 unit Capsule 2,000 unit PO DAILY coenzyme Q10 [CoQ-10] 100 mg Capsule 100 mg PO DAILY metformin 1,000 mg Tablet 1,000 mg PO BID [id number] [Daily Multivitamin] 200-100-500 mcg Capsule 1 tab PO DAILY omeprazole 20 mg Tablet,Delayed Release (Dr/Ec) 20 mg PO DAILY rosuvastatin 40 mg Tablet 40 mg PO DAILY Discontinued amlodipine 10 mg Tablet 10 mg PO DAILY losartan 100 mg Tablet 100 mg PO DAILY No Action amiodarone 200 mg Tablet 200 mg PO Q12HR Qty: 28 RF: 0 hydrocodone-acetaminophen [[place]] 5-325 mg Tablet 1 tab PO Q6H PRN (Reason: Acute Pain) Qty: 12 RF: 0 tamsulosin 0.4 mg Capsule 0.4 mg PO DAILY Qty: 30 RF: 1 Ambulatory Orders / Order Sets / DME: XR chest 2V PA&LAT (Routine) Timeframe: 2 Days Location: Determined by Patient Ordered By: Delores Hayes Basic Metabolic Panel (Routine) Timeframe: 2 Weeks Location: Determined by Patient Ordered By: Delores Hayes Complete Blood Count NO Diff (Routine) Timeframe: 2 Weeks Location: Determined by Patient Ordered By: Delores Hayes Referrals: Gene Rondon Dr [Other] - See Instructions ( Your appointment has been scheduled for [04/14/18] at [2:30 pm] If you cannot make this appointment, please call the office to reschedule ) Juana Garcia MD [Physician] - See Instructions ( Your appointment has been scheduled for [03/31/18] at [10:30 am] If you cannot make this appointment, please call the office to reschedule ) Milena Sanchez DO [FAMILY MEDICINE] - See Instructions ( Please call the physician's office to book the appointment to be seen within [2 weeks].) - Discharge Instructions Patient Printed Instructions: Metoprolol (By mouth), Oxycodone/Acetaminophen ( By mouth), Amiodarone (By mouth), Losartan (By mouth), Apixaban (By mouth), Coronary Artery Bypass Graft (DC) Additional Instructions: PREVENA Single Use Negative Wound Therapy System Caregiver Instruction Sheet 1. A Prevena dressing system was applied to the chest incision during surgery , to promote wound healing. It works via a suction device (negative pressure wound therapy) to remove low to moderate levels of exudate (drainage) and infectious materials. We recommend that the device stay in place for up to seven days, from day of surgery. 2. Day of Surgery___/ Day of Removal /____ 3. The dressing should only be removed by a health critical care cns. Please arrange removal of device to coincide with Home Health visit and or with Nursing staff at Rehab 4. If skin reddening or irritation of skin occurs, or excessive drainage, please notify the Cardiovascular Surgeons office at [phone]. 5. Light showering is permissible; however the pump should be disconnected and placed in safe location, where it will not get wet. The dressing should not be exposed to direct spray or submerged in water. No bath tub / shower only. Ensure the end of the tubing attached to the dressing is facing down so that water does not enter the top of the tube. 6. To remove Prevena dressing: press purple button to turn off device / remove the suction. Then disconnect the tubing from the pump. The fixation strips should be stretched away from the skin and the dressing lifted at one corner and peeled back until it has been fully removed. 7. After removal, it is ok to shower daily using liquid dial soap and clean wash cloth, rinse and pat dry, and leave incision open to air dry. For any concerns regarding Prevena dressing, and or wounds, please contact Monica Cruz, patient navigator at [phone] or notify the Cardiovascular Surgeons office at [phone]. Incentive spirometry Q1 hr x 10, while awake, also use acapella device hourly whole awake Sternal Breast Bone Precautions: NO pushing or pulling, ( pt must use sternal pillow to support chest with all activities and with coughing ( takes up to 3 months breast bone to heal ) Daily incision care: ok to shower daily, no tub bath. Wash all incisions with liquid dial soap, clean wash cloth to each site, rinse and pat dry. Observe for any signs of infection, such as drainage which is dark yellow, fishman, green or foul smelling. Immediately report to the surgeon any drainage from the chest incision, or legs, and for any abnormal drainage from the chest tube sites. Notify surgeon if any temp >101.5 degrees F. When specialty dressing removed/ or if you do not have one, continue to shower daily as above, then rinse and pat incision dry and paint with betadine daily x 5 days. Allow steri strips to fall off if you have any. Avoid lotions, creams, salves, oils, etc. for the first month Please see attached forms for additional instructions regarding post Open Heart specialty wound vacuum dressings. ROBBIE or Prevena , Dressing to be removed by Nursing staff on ___03/11/18____ For Dr. Garcia patients , please obtain CBC, BMP, PA & Lat CXR in 2 weeks, results to Dr. Garcia ( prescription will be given) ( ) (Tele: [phone]) , F/U appointment: as per PA instructions: PCP in 2 weeks, CV surgeon 2 weeks, [employer] [facility] 3-4 weeks For any questions regarding incisions/ dressing / meds / post op care or above Symptoms, Wednesday 8am-5pm Heart & Vascular Surgery Office ( Dr. Sullivan & Dr. Garcia), After Hours / Nights (5pm -8am) Weekends and Holidays Please call [facility] Cardiac Intermediate Care Unit (C[facility]) Charge Nurse
== END 2018-03-10 12:08 | disposition home health service (06) ==
LOC: HSDI 03-04 08:38 → HCVI 03-04 16:32 → HCPC 03-05 12:58
PROVIDERS: ADMIT Thoracic Surgery (Cardiothoracic Vascular Surgery); ATTEND Thoracic Surgery (Cardiothoracic Vascular Surgery)

== ENCOUNTER 2018-03-22 10:57 | Inpatient (IN) ==
--- NOTE | 2018-03-22 12:25 | MB ---
cc: Juana Garcia MD DATE: 03/22/2018 HISTORY OF PRESENT ILLNESS: This is a 67-year-old male patient of Dr. Milena Sanchez, Dr. Gene Rondon in [place], who recently underwent coronary artery bypass grafting on 03/04/2018. He had a POTTER to the LAD, saphenous vein graft to the PDA, saphenous vein graft to the diagonal-1 after the patient was electively admitted with unstable angina. Admission date was 03/04/2018, discharged on 03/10/2018; no immediate postop complications. He did; however, have episodes of atrial fibrillation and was discharged with a 2-week dose of amiodarone; also, metoprolol and Eliquis. He has been taking his Eliquis as directed. His last dose was yesterday. During the course of his admission, he did have some small bilateral effusions. The right was greater than the left, but there was not enough fluid apparently to drain and/or would be some type of complications. He was discharged home on room air. He presented to the hospital in [place] with 3-4 day history of shortness of breath, some orthopnea, some paroxysmal nocturnal dyspnea. They did do lab work which did show his BNP of greater than 1700. They did a CT chest, which ruled out pulmonary emboli; however, he had a moderate to large right effusion, small to moderate left pleural effusion. It also noted a large pericardial effusion with collapse of the right ventricle. The patient was transferred to our facility from [place] for further evaluation. The patient currently remains on 2 liters nasal cannula. His O2 saturation is 96%. He is in normal sinus rhythm. EKG is pending. PAST MEDICAL HISTORY: Includes coronary artery disease, prior [place], diabetes mellitus, hyperlipidemia, tobacco abuse, ejection fraction preop was 45%. PAST SURGICAL HISTORY: Include the coronary artery bypass graft x3 on 03/04/2018. He has had eye surgery. ALLERGIES: NO KNOWN ALLERGIES. HOME MEDICATIONS: Include: 1. Eliquis 5 mg p.o. b.i.d. 2. Amiodarone 200 every 12 hours which should be completed. 3. Aspirin 81 daily. 4. CoQ10. 5. Docusate. 6. Losartan 25 mg daily. 7. Metformin 1000 b.i.d. 8. Metoprolol 25 b.i.d. 9. Multivitamin. 10. Omeprazole 20. 11. Crestor 40 mg 12. Percocet 1 p.o. every 4 hours. FAMILY HISTORY: Noncontributory. SOCIAL HISTORY: No illicit drugs. Prior tobacco abuse. No alcohol. REVIEW OF SYSTEMS: GENERAL: No night sweats, fever, heat and cold intolerance. SKIN: No psoriasis, itching or hives. He has had poor appetite last few days. HEENT: No blurred vision, hearing loss. RESPIRATORY: Positive for shortness of breath, paroxysmal nocturnal dyspnea. CARDIOVASCULAR: No recent chest pain. No leg edema. GASTROINTESTINAL: No diarrhea or vomiting. He has; however, had poor appetite. GENITOURINARY: No burning, frequency, urgency. CENTRAL NERVOUS SYSTEM: No history of TIA, CVA or seizure disorder. ENDOCRINOLOGY: Positive for diabetes mellitus. PHYSICAL EXAMINATION: VITAL SIGNS: Blood pressure 125/80, heart rate of 96-109, temperature 98. The patient on 2 liter nasal cannula. GENERAL: Alert and oriented in no acute distress. HEENT: Head is normocephalic, atraumatic. Pupils equal and reactive. Oral mucosa pink, moist. NECK: Supple. No JVD. HEART: Sounds S1, S2, slightly tachycardic. No rubs or gallops. LUNGS: Diminished in the bases, the right greater than the left. ABDOMEN: Soft, nontender. His midsternal incision is well approximated and healing well. The incision to his left lower leg from his endovascular site is intact and well approximated. He has good distal pulses. No peripheral edema noted. LABORATORY DATA: From an outside hospital this morning revealed a hemoglobin of 12, hematocrit of 37, white cell count of 10, platelet count of 490. INR 1.4. Sodium 139, potassium 4.4, BUN of 24 with a creatinine of 1.32, GFR of 54. Troponin 0.02, proBNP 1716. IMAGIN. Ultrasound of the lower extremities revealed no DVT in either legs. 2. The CT chest again showed no pulmonary emboli, large pericardial effusion with significant compression of the right ventricle concerning for tamponade. Moderate to large right pleural effusion. PLAN: At this time, a 2-D echo has been ordered stat and also the EKG; lab work has been completed. The films will be evaluated by Dr. Juana Garcia to evaluate necessity for possible pericardiocentesis versus pericardial window and/or pleural thoracentesis with fluids for therapeutic reasons. Dictated by DON Zapata I saw this patient on 03/22/18 with the [employer] and thoroughly reviewed his history and examined him. I agree with the plan for operative drainage on 03/23/18. i spent ~30 minutes with the patient. MD MARIO Pérez/jossue , 11:57 AM , 12:08 PM ADENIKE
[2018-03-22] MEDS ORDERED: Chlorhexidine 4% Topical 120 APPLIC/120 ML Bottle TOPICAL SCH (12:30)
[2018-03-22] MEDS ORDERED: Sodium Chloride 0.9% Irr Bot 500 ML, ceFAZolin Inj 500 MG IRRIGATION SCH ×2 (12:30)
[2018-03-22] MEDS ORDERED: Dextrose 50% in Water 50 ML Vial IV.PUSH PRN ×2 (12:30→12:45)
[2018-03-22] MEDS ORDERED: Acetaminophen 325 MG Tablet PO PRN (12:35)
[2018-03-22] MEDS ORDERED: Docusate Sodium 100 MG Capsule PO PRN (12:35)
--- NOTE | 2018-03-22 12:43 | ED ---
HPI General Chief Complaint: Medical Clearance Stated Complaint: Transfer Time Seen by Provider: 03/22/18 11:08 Source: patient Mode of arrival: EMS Limitations: no limitations History of Present Illness Complaint: shortness of breath Onset (ago): day(s) (4) Context: other (recent CABG) Severity: moderate Consistency/Duration: constant and progressively worsening Relieving factors: nothing Exacerbating factors: nothing Treatment prior to arrival: none Related Data Home oxygen amount: none Home Medications Medication Instructions Recorded Confirmed aspirin [Adult Low Dose Aspirin] 81 mg PO DAILY 03/04/18 03/22/18 cholecalciferol (vitamin D3) 2,000 unit PO DAILY 03/04/18 03/22/18 [Vitamin D3] coenzyme Q10 [CoQ-10] 100 mg PO DAILY 03/04/18 03/22/18 metformin 1,000 mg PO BID 03/04/18 03/22/18 oh-uh-UL-vit U-czyug-gtq-coQ10 1 tab PO DAILY 03/04/18 03/22/18 [Daily Multivitamin] omeprazole 20 mg PO DAILY 03/04/18 03/22/18 rosuvastatin 40 mg PO DAILY 03/04/18 03/22/18 Previous Rx's Medication Instructions Recorded amiodarone 200 mg PO Q12HR #28 tab 03/10/18 apixaban [Eliquis] 5 mg PO BID #60 tab 03/10/18 docusate sodium [DOK] 100 mg PO BID #30 cap 03/10/18 losartan 25 mg PO DAILY #30 tab 03/10/18 metoprolol tartrate 25 mg PO BID #60 tab 03/10/18 oxycodone-acetaminophen 1 tab PO Q4HR #40 tab 03/10/18 Allergies Allergy/AdvReac Type Severity Reaction Status Date / Time No Known Allergies Allergy Unverified 03/04/18 09:54 Review of Systems ROS: all other systems reviewed are negative [facility] Medical History Medical History CAD (coronary artery disease) (Acute) Diabetes mellitus (Acute) Heart attack (Acute) Hyperlipemia (Acute) Surgical History Surgical History Hx of cataract surgery (Acute) Hx of tonsillectomy (Acute) Social History Social History Substance History: No History of Abuse Second Hand Smoke Exposure: Yes Smoking Status: Current every day smoker Tobacco Type: Cigarettes How Often Do You Have a Drink Containing Alcohol: Monthly or less Recent Travel in [facility] within the Last 8 Weeks: No Recent Out of Country Travel within the Last 8 Weeks: No Immunization History Tetanus Immunization: Unsure Exam Const General: cooperative, healthy appearing, comfortable, no acute distress, well developed and well groomed Orientation: alert, awake and oriented x3 HENMT Head: normal to inspection, normocephalic and atraumatic Eyes Alignment and Position: alignment normal Conjunctivae: conjunctivae normal Sclera: sclerae normal EOM: EOM intact bilaterally Neck Neck: normal visual inspection and full ROM Chest Chest: normal inspection of the chest Resp Effort & Inspection: normal respiratory effort and able to speak in complete sentences Auscultation: crackles on the right Cardio Rate: regular rate Rhythm: regular rhythm GI Inspection: normal to inspection Palpation: soft Back/Spine/Pelvis Cervical Spine: cervical ROM normal Thoracic/Lumbar Spine: thoraco-lumbar ROM normal Skin General: no rashes or lesions noted and turgor normal Neuro General: alert, awake, oriented x3, moves all extremities and CN's II-XI intact bilaterally Extrem General: normal to inspection and full ROM Psych Appearance: grossly normal Mental Status: mental status grossly normal Speech and Movement: speech and movement normal Mood: congruent mood Affect: normal affect Attitude: cooperative Thought Process: normal Thought Content: normal Judgment: judgment good Course Initial Documented Vital Signs Temperature 98.1 F 03/22/18 11:03 Pulse Rate 109 H 03/22/18 11:03 Respiratory Rate 17 03/22/18 11:03 Blood Pressure 125/80 03/22/18 11:03 Pulse Oximetry 97 03/22/18 11:03 Last Documented Vital Signs Temperature 98.1 F 03/22/18 11:03 Pulse Rate 96 H 03/22/18 11:23 Respiratory Rate 17 03/22/18 11:23 Blood Pressure 125/80 03/22/18 11:23 Pulse Oximetry 96 03/22/18 11:23 Medical Decision Making MDM Narrative Medical decision making narrative: She was transferred to us from [facility] of the [facility] for probable pericardial effusion. He was accepted by Dr. Juana Garcia who did his recent CABG. his PA has already been to see the patient. She has asked for a stat echo. That has been ordered. Medical Screen Exam Complete: Yes Emergency Medical Condition: Yes ECG Data EKG Prior to Arrival: No Attestation: I personally reviewed and interpreted this ECG as follows: (His EKG shows a sinus rhythm with a rate of 90. He has some nonspecific ST elevation anteriorly.) Discharge Plan Physicians Team ED Provider: Delma Gloria Primary Care Provider: Primary Care LeahiNatalie Rxs /Orders / Referrals /Forms Prescriptions: No Action aspirin [Adult Low Dose Aspirin] 81 mg Tablet,Delayed Release (Dr/Ec) 81 mg PO DAILY RF: 0 metformin 1,000 mg Tablet 1,000 mg PO BID RF: 0 coenzyme Q10 [CoQ-10] 100 mg Capsule 100 mg PO DAILY RF: 0 rosuvastatin 40 mg Tablet 40 mg PO DAILY RF: 0 omeprazole 20 mg Tablet,Delayed Release (Dr/Ec) 20 mg PO DAILY RF: 0 cholecalciferol (vitamin D3) [Vitamin D3] 2,000 unit Capsule 2,000 unit PO DAILY RF: 0 dc-kd-IT-vit B-ojlwe-jme-coQ10 [Daily Multivitamin] 200-100-500 mcg Capsule 1 tab PO DAILY RF: 0 amiodarone 200 mg Tablet 200 mg PO Q12HR Qty: 28 RF: 0 metoprolol tartrate 25 mg Tablet 25 mg PO BID Qty: 60 RF: 2 apixaban [Eliquis] 5 mg Tablet 5 mg PO BID Qty: 60 RF: 2 oxycodone-acetaminophen 5-325 mg Tablet 1 tab PO Q4HR Qty: 40 RF: 0 losartan 25 mg Tablet 25 mg PO DAILY Qty: 30 RF: 2 docusate sodium [DOK] 100 mg Capsule 100 mg PO BID Qty: 30 RF: 0 Discharge Interventions Interventions: Vital Signs Last Done: 03/22/18 11:23 Status ED Status: With Doctor
[2018-03-22] MEDS ORDERED: ceFAZolin Inj 2,000 MG in Sodium Chlor 0.9% Inj 80 ML IV.SIG SCH (13:00)
--- NOTE | 2018-03-22 13:02 | XR ---
EXAM DATE: 03/22/2018 12:00 AM EDT AGE/SEX: 67 years / Male INDICATIONS: Shortness of breath post op heart surgery. CLINICAL DATA: This is the patient's initial encounter. Patient reports that signs and symptoms have been present for 2 days and indicates a pain score of 0/10. MEDICAL/SURGICAL HISTORY: Cardiovascular disease. CABG. COMPARISON: [facility], CHEST 1V SINGLE AP, 03/09/2018. . FINDINGS: A single AP portable view of the chest was obtained and again demonstrates the patient is status post median sternotomy. There is mild cardiomegaly with no confluent infiltrates or effusions. There is n o perihilar edema. The bony thorax is intact. There are multiple overlying electrocardiogram leads. CONCLUSION: Mild cardiomegaly with no acute cardiopulmonary disease. Electronically signed by: Naun London MD 03/22/2018 1:00 PM EDT
[2018-03-22 13:03] LABS: Baso % (Auto) 0.3 % (0.0-2.0); Eos % (Auto) 0.1 % (0.0-4.0); Hematocrit 33.7 % (39.0-51.0); Hemoglobin 11.3 gm/dL (13.0-17.0); Lymph # (Auto) 2.2 th/mm3 (1.0-4.8); Lymph % (Auto) 23.2 % (9.0-44.0); Mean Corpuscular HGB Conc 33.4 % (32.0-36.0); Mean Corpuscular Hemoglobin 30.3 pg (27.0-34.0); Mean Corpuscular Volume 90.7 fL (80.0-100.0); Mean Platelet Volume 9.6 fL (7.0-11.0); Mono # (Auto) 0.8 th/mm3 (0.0-0.9); Mono % (Auto) 8.7 % (0.0-8.0); Neut # (Auto) 6.3 th/mm3 (1.8-7.7); Neut % (Auto) 67.7 % (16.0-70.0); Platelet Count 409 th/mm3 (150-450); Red Blood Count 3.72 mil/mm3 (4.50-5.90); Red Cell Distribution Width 13.4 % (11.6-17.2); White Blood Count 9.3 th/mm3 (4.0-11.0)
[2018-03-22 13:12] LABS: INR 1.3 Ratio; Prothrombin Time 12.8 sec (9.8-11.6)
[2018-03-22 13:23] LABS: Anion Gap 11 meq/L (5-15); Aspartate Aminotransferase 22 U/L (15-37); Blood Urea Nitrogen 24 mg/dL (7-18); Calcium 8.6 mg/dL (8.5-10.1); Carbon Dioxide 20.7 meq/L (21.0-32.0); Chloride 108 meq/L (98-107); Glomerular Filtration Rate 52 mL/min (>89); Glucose,Random 104 mg/dL (74-106); Potassium 5.1 meq/L (3.5-5.1); Sodium 140 meq/L (136-145)
[2018-03-22 13:24] LABS: Alanine Aminotransferase 25 U/L (12-78)
[2018-03-22 13:27] LABS: Alkaline Phosphatase 47 U/L (45-117)
--- NOTE | 2018-03-22 13:49 | ECHRPT ---
Indication: CONCLUSIONS Limited echocardiographic study. There is a large circumferential pericardial effusion with near complete diastolic collapse of the r ight ventricle with noted interventricular dependence and respiratory variation of mitral inflow on pulse wave doppler evaluatinon. These features are consistent with hemodynamically significant pericardial eff usion and tamponade physiology. BP: / HR: Rhythm: Sinus Technical Quality:Technically difficult study FINDINGS LEFT VENTRICLE Normal left ventricular size. The left ventricular systolic function is normal by visual estimate in a single subcostal view with an estimated ejection fraction in the range of 60-65%. PERICARDIUM There is a large circumferential pericardial effusion with near complete diastolic collapse of the r ight ventricle with noted interventricular dependence and respiratory variation of mitral inflow on pulse wave doppler evaluatinon. OTHER FINDINGS Pleural effusion noted. Héctor Spencer Edited by: staffing administrator staffing administrator (Electronically Signed) Final Date:22 March 2018 12:46 Amended: 22 March 2018 13:48
--- NOTE | 2018-03-22 17:49 | ECG ---
Date Performed: 03/22/2018 Time Performed: 11:07:12 PTAGE: 67 years EKG: Sinus rhythm MARKED LEFT AXIS DEVIATION LOW QRS VOLTAGE IN EXTREMITY LEADS SEPTAL MYOCARDIAL INFARCTION Compared to previous tracing, septal infarct pattern is new, likely due to lead placement differences ABNORMAL ECG PREVIOUS TRACING : 03/05/2018 04.28 DOCTOR: Caesar Mota Interpretating Date/Time 03/22/2018 17:48:37
[2018-03-22] MEDS: Insulin NovoLOG Aspart Correctional Sugar Inj SQ SCH ×2 (18:21→23:16)
[2018-03-22] MEDS ORDERED: Chlorhexidine Gluconate 2% 1 Pack (2 Cloths) TOPICAL ONE (22:26)
[2018-03-22] MEDS ORDERED: Metoprolol Tartrate 25 MG Tablet PO ONE (22:26)
[2018-03-22] MEDS ORDERED: Sodium Chlor 0.9% Inj 500 ML IV.SIG SCH (23:00)
--- NOTE | 2018-03-23 08:06 | P.PNCV ---
- Note Subjective/Hospital Course: 67-year-old male patient of Dr. Milena Sanchez, Dr. Gene Rondon in [place], who recently underwent coronary artery bypass grafting on 2017. He had a POTTER to the LAD, saphenous vein graft to the PDA, saphenous vein graft to the diagonal-1 after the patient was electively admitted with unstable angina. Admission date was 03/04/2018, discharged on 03/10/2018; no immediate postop complications. He did; however, have episodes of atrial fibrillation and was discharged with a 2-week dose of amiodarone; also, metoprolol and Eliquis. He has been taking his Eliquis as directed. His last dose was yesterday. During the course of his admission, he did have some small bilateral effusions. The right was greater than the left, but there was not enough fluid apparently to drain and/or would be some type of complications. He was discharged home on room air. He presented to the hospital in [place] with 3 -4 day history of shortness of breath, some orthopnea, some paroxysmal nocturnal dyspnea. They did do lab work which did show his BNP of greater than 1700. They did a CT chest, which ruled out pulmonary emboli; however, he had a moderate to large right effusion, small to moderate left pleural effusion. It also noted a large pericardial effusion with collapse of the right ventricle. The patient was transferred to our facility from [place] for further evaluation. The patient currently remains on 2 liters nasal cannula. His O2 saturation is 96%. He is in normal sinus rhythm. EKG is pending. PAST MEDICAL HISTORY: Includes coronary artery disease, prior OR, diabetes mellitus, hyperlipidemia, tobacco abuse, ejection fraction preop was 45%. Echo 03/22 Normal left ventricular size. The left ventricular systolic function is normal by visual estimate in a single subcostal view with an estimated ejection fraction in the range of 60-65%. PERICARDIUM There is a large circumferential pericardial effusion with near complete diastolic collapse of the right ventricle with noted interventricular dependence and respiratory variation of mitral inflow on pulse wave Doppler evaluation. 03/23 pt went back into afib with RVR last pm , requiring amiodarone back into NSR at this time, scheduled for surgery this am Objective: Vital Signs - 24 hr 03/22/18 11:03 03/22/18 11:23 03/22/18 12:36 Temperature 98.1 F Pulse Rate 109 H 96 H 82 Respiratory Rate 17 17 17 Blood Pressure 125/80 125/80 131/72 Pulse Oximetry 97 96 97 03/22/18 13:59 03/22/18 14:00 03/22/18 14:25 Temperature 97.7 F Pulse Rate 97 H Respiratory Rate 20 Blood Pressure 129/88 Pulse Oximetry 94 L 97 92 L 03/22/18 15:00 03/22/18 16:00 03/22/18 20:00 Temperature 97.8 F 97.8 F 98.8 F Pulse Rate 98 H 98 H 99 H Respiratory Rate 20 20 20 Blood Pressure 124/96 H 124/96 H 129/90 Pulse Oximetry 92 L 93 L 93 L 03/23/18 00:00 03/23/18 00:33 03/23/18 03:51 Temperature 98.4 F Pulse Rate 108 H 102 H 113 H Respiratory Rate 20 18 14 Blood Pressure 129/87 Pulse Oximetry 94 L 96 03/23/18 04:00 03/23/18 06:00 03/23/18 07:26 Temperature Pulse Rate 138 H 80 Respiratory Rate 22 18 Blood Pressure 157/98 H Pulse Oximetry 95 97 96 GENERAL: SKIN: Warm and dry. sternal incision intact and well approximated HEAD: Normocephalic. EYES: No scleral icterus. No injection or drainage. NECK: Supple, trachea midline. No JVD or lymphadenopathy. CARDIOVASCULAR: Regular rate and rhythm without murmurs, gallops, or rubs. RESPIRATORY: Breath sounds equal bilaterally. No accessory muscle use. GASTROINTESTINAL: Abdomen soft, non-tender, nondistended. MUSCULOSKELETAL: No cyanosis, or edema. BACK: Nontender without obvious deformity. No CVA tenderness. Labs: Laboratory Results - last 12 hr 03/22/18 23:16 POC Glucose 119 H Result Diagrams: 03/22/18 11:30 03/22/18 11:30 - Plan (1) Hyperlipidemia Plan: hold BB and losartan (2) Hypertension (3) Diabetes mellitus Plan: insulin sliding scale diabetic diet (4) S/P CABG x 3 Plan: resume ASA post surgery , resume BB post surgery (5) Acute pericardial effusion Plan: for pericardial and pleural fluid drainage today I personally interviewed and examined this patient with Ms. Hayes on 10/2 18 in the Emergency Dept. I agree with the assessment and ferrer. (1) Hyperlipidemia Qualifiers: (2) Hypertension Qualifiers: (3) Diabetes mellitus Qualifiers: Diabetes mellitus type: type 2
[2018-03-23] MEDS ORDERED: Bupivacaine 0.5% Inj 50 ML MDV Vial ONE (08:51)
[2018-03-23] MEDS: Insulin NovoLOG Aspart Correctional Sugar Inj SQ SCH ×4 (09:06→23:36)
[2018-03-23] MEDS ORDERED: Etomidate Inj 20 MG/10 ML Ampul IV.PUSH ONE (09:18)
[2018-03-23] MEDS ORDERED: Ketamine Inj 50 MG/5 ML Syringe IV.PUSH ONE (09:34)
--- NOTE | 2018-03-23 10:54 | P.DCO ---
- Diagnosis (3) Hyperlipidemia - Home Health Nursing Order: Medical education, Signs/symptoms of disease process, Wound care and dressing changes, Nursing assessment with vital signs Instructions: Thoracic Surgery patients Mandatory frequency Assess and evaluation, 2-3 x a week for one week Initial visit 1. Review post chest surgery instructions chest precautions, Activity, Elastic hose, Incision care, Driving, Incentive spirometry, Smoking, [place] , Work and other) 2. Need Betadine to paint incision 3. Medication reconciliation 4. Importance of follow up care/ check on appointments 5. Make calendar record temperature daily 6. When to call Home nurse, review instructions, phone list 7. Incentive Spirometry, demonstration Visit 1- Begin discharge instruction for patient family and/ or caregiver using teach back method- 1. Signs and symptoms of infection 2. Disease characteristics 3. Medicines and side effects 4. Foods and nutrition/ appetite 5. Infection control/ hand washing/ hygiene Visit 2- Continue teaching 1. Discharge instructions- include additional information on smoking cessation , Visit 3- Continue teaching- 1. Cough and deep breathing, incision monitoring. For any questions please call : / [facility] Cardiothoracic Surgery Incentive spirometry Q1 hr x 10, while awake, also use acapella device hourly whole awake Sternal Breast Bone Precautions: NO pushing or pulling, ( pt must use sternal pillow to support chest with all activities and with coughing ( takes up to 3 months breast bone to heal ) Daily incision care: ok to shower daily ( 48hrs after chest tube removed) , no tub bath. Wash all incisions with liquid dial soap, clean wash cloth to each site, rinse and pat dry. Observe for any signs of infection, such as drainage which is dark yellow, fishman, green or foul smelling. Immediately report to the surgeon any drainage from the chest incision, or legs, and for any abnormal drainage from the chest tube sites. Notify surgeon if any temp > 101.5 degrees F. When specialty dressing removed/ or if you do not have one, continue to shower daily as above, then rinse and pat incision dry and paint with betadine daily x 5 days. Allow steri strips to fall off if you have any. Avoid lotions, creams, salves, oils, etc. for the first month PA & Lat CXR in 1 weeks, results to Dr. Garcia ( prescription will be given) ( ) (Tele: [phone]) , F/U appointment: as per DC instructions: PCP in 2 weeks, CV surgeon 1 weeks, [employer] 3-4 weeks For any questions regarding incisions/ dressing / meds / post op care or above Symptoms, Wednesday 8am-5pm Heart & Vascular Surgery Office ( Dr. Sullivan & Dr. Garcia), After Hours / Nights (5pm -8am) Weekends and Holidays Please call [facility] Cardiac Intermediate Care Unit (CIC) Charge Nurse - Case Management Consult Yes - Certification I have seen patient Jeremias Pierre on 03/23/18. My clinical findings support the need for the requested home health care services because: Deconditioned with increased weakness I certify that my clinical findings support that this patient is homebound because: Post-op weakness (3) Hyperlipidemia Qualifiers:
[2018-03-23] MEDS ORDERED: Post-op Orders (for Pharmacy) OTHER STA (11:31)
[2018-03-23] MEDS ORDERED: Bisacodyl 10 MG Supp RECTAL PRN (11:31)
[2018-03-23] MEDS ORDERED: fentaNYL Citrate Inj 100 MCG/2 ML Ampul ONE (12:14)
[2018-03-23] MEDS ORDERED: Morphine Inj 4 MG/ML Vial ONE (12:14)
--- NOTE | 2018-03-23 12:36 | XR ---
EXAM DATE: 03/23/2018 11:32 AM EDT AGE/SEX: 67 years / Male INDICATIONS: Post Thoracotomy. CLINICAL DATA: This is the patient's subsequent encounter. Patient reports that signs and symptoms h ave been present for 4 - 6 days and indicates a pain score of 4/10. MEDICAL/SURGICAL HISTORY: Cardiovascular disease. CABG. COMPARISON: [facility] [place] 1[place] SINGLE AP, 03/22/2018. . FINDINGS: A right-sided chest tube is noted in good position. There is no pneumothorax. The heart is enlarged. Hazy opacity is noted throughout the left hemithorax consistent with possible layering pleural effusi on, asymmetric pulmonary edema or developing infiltrate. Median sternotomy wires are noted status pos t cardiac surgery. CONCLUSION: 1. Hazy opacity is noted throughout the left hemithorax consistent with possible layering pleural ef fusion, asymmetric pulmonary edema or developing infiltrate. 2. Cardiomegaly. Electronically signed by: Dave Shaver MD 03/23/2018 12:35 PM EDT
--- NOTE | 2018-03-23 12:58 | P.OP ---
- Preoperative Diagnosis (1) Pericardial effusion with cardiac tamponade (2) Pleural effusion (3) S/P CABG x 3 - Postoperative Diagnosis (1) S/P CABG x 3 (2) Pericardial effusion with cardiac tamponade (3) Pleural effusion Date of procedure: 03/23/18 Procedure: Right thoracoscopic exploration Drainage of pericardial effusion and right pleural effusion Anesthesia: BIANCA Surgeon: uJana Garcia MD Strategy Analyst: Joanne Preciado Pathology: none sent Operation and Findings: After a time out, the patient was prepped and draped in the usual manner. A small incision was made just below the right nipple in the 6th intercostal space and the right pleural space was entered bluntly. A camera was inserted with one lung ventilation and ~950ml of serous fluid was drained. The pericardium was not well-visualized through this approach and the patient was hypotensive, so the pericardium was drained as follows: A midline incision was made over the xyphoid adjacent to the prior sternotomy and electrocautery was used to carry the dissection down to the xyphoid. A plane was developed behind the sternum and it was retracted anteriorly. The pericardium was identified and entered sharply. Approximately 850 ml of serous fluid was drained. A 32F right angle chest tube was placed in the right pleural space through the camera port incision. A 24F Froilan drain was placed to drain the pericardium and secured with a 0 Silk suture. The wound was irrigated an closed in 3 layers. All sponge and instrument counts were correct and the patient was transferred to the CVICU in stable condition.
[2018-03-23] MEDS: Senna/Docusate Sodium 8.6/50 MG Tablet PO SCH (20:07)
--- NOTE | 2018-03-23 21:15 | ECG ---
Date Performed: 03/22/2018 Time Performed: 15:08:12 PTAGE: 67 years EKG: Atrial fibrillation with rapid ventricular response Left axis deviation Poor R wave progres domi - probable normal variant Lateral T wave changes are nonspecific Low QRS voltages in precordial leads Abnormal ECG PREVIOUS TRACING : 03/22/2018 11.07 Compared to previous tracing, SR no longer present DOCTOR: Cayla Landeros Interpretating Date/Time 03/23/2018 21:15:28
[2018-03-24 04:22] LABS: Baso % (Auto) 0.2 % (0.0-2.0); Eos % (Auto) 0.5 % (0.0-4.0); Hematocrit 31.9 % (39.0-51.0); Mean Corpuscular HGB Conc 34.4 % (32.0-36.0); Mean Corpuscular Hemoglobin 30.6 pg (27.0-34.0); Mean Corpuscular Volume 88.8 fL (80.0-100.0); Mean Platelet Volume 9.1 fL (7.0-11.0); Mono # (Auto) 0.6 th/mm3 (0.0-0.9); Mono % (Auto) 5.9 % (0.0-8.0); Neut # (Auto) 8.2 th/mm3 (1.8-7.7); Neut % (Auto) 83.4 % (16.0-70.0); Platelet Count 302 th/mm3 (150-450); Red Cell Distribution Width 13.6 % (11.6-17.2); White Blood Count 9.8 th/mm3 (4.0-11.0)
[2018-03-24 04:37] LABS: Calcium 7.5 mg/dL (8.5-10.1); Carbon Dioxide 23.9 meq/L (21.0-32.0); Potassium 3.8 meq/L (3.5-5.1)
--- NOTE | 2018-03-24 04:47 | XR ---
EXAM DATE: 03/24/2018 11:32 AM EDT AGE/SEX: 67 years / Male INDICATIONS: Chest pain post CABG CLINICAL DATA: This is the patient's subsequent encounter. Patient reports that signs and symptoms h ave been present for 2 days and indicates a pain score of 8/10. MEDICAL/SURGICAL HISTORY: Cardiovascular disease. CABG. COMPARISON: [facility] [place]ST 1V SINGLE AP, 03/23/2018. . FINDINGS: Stable right-sided chest tube without significant pneumothorax. Persistent diffuse hazy opacity throu ghout the left lung. Cardiac silhouette is enlarged with indistinct central pulmonary vascularity. Re mainder of exam is unchanged. CONCLUSION: 1. No significant interval change. 2. Right-sided chest tube in place without pneumothorax. 3. Persistent diffuse hazy left lung opacity likely reflecting layering pleural effusion and associa sally airspace disease. 4. Cardiomegaly with positive fluid balance. Electronically signed by: Alfred Hernandez MD 03/24/2018 4:46 AM EDT
[2018-03-24] MEDS: Insulin NovoLOG Aspart Correctional Sugar Inj SQ SCH ×4 (08:48→20:14)
[2018-03-24] MEDS ORDERED: Metoprolol Tartrate 25 MG Tablet PO SCH (09:00)
[2018-03-24] MEDS: Senna/Docusate Sodium 8.6/50 MG Tablet PO SCH ×2 (09:18→20:26)
[2018-03-24] MEDS: Multivitamin/Minerals Therapeutic Tablet PO SCH (09:18)
[2018-03-24] MEDS: Amiodarone 200 MG Tablet PO SCH ×2 (09:18→20:26)
[2018-03-24] MEDS: Enoxaparin Inj 40 MG/0.4 ML Syringe SQ SCH ×2 (09:18→20:26)
--- NOTE | 2018-03-24 10:04 | P.PNCV ---
- Note Subjective/Hospital Course: 67-year-old male patient of Dr. Milena Sanchez, Dr. Gene Rondon in [place], who recently underwent coronary artery bypass grafting on 2017. He had a POTTER to the LAD, saphenous vein graft to the PDA, saphenous vein graft to the diagonal-1 after the patient was electively admitted with unstable angina. Admission date was 03/04/2018, discharged on 03/10/2018; no immediate postop complications. He did; however, have episodes of atrial fibrillation and was discharged with a 2-week dose of amiodarone; also, metoprolol and Eliquis. He has been taking his Eliquis as directed. His last dose was yesterday. During the course of his admission, he did have some small bilateral effusions. The right was greater than the left, but there was not enough fluid apparently to drain and/or would be some type of complications. He was discharged home on room air. He presented to the hospital in [place] with 3 -4 day history of shortness of breath, some orthopnea, some paroxysmal nocturnal dyspnea. They did do lab work which did show his BNP of greater than 1700. They did a CT chest, which ruled out pulmonary emboli; however, he had a moderate to large right effusion, small to moderate left pleural effusion. It also noted a large pericardial effusion with collapse of the right ventricle. The patient was transferred to our facility from [place] for further evaluation. The patient currently remains on 2 liters nasal cannula. His O2 saturation is 96%. He is in normal sinus rhythm. EKG is pending. PAST MEDICAL HISTORY: Includes coronary artery disease, prior ID, diabetes mellitus, hyperlipidemia, tobacco abuse, ejection fraction preop was 45%. Echo 03/22 Normal left ventricular size. The left ventricular systolic function is normal by visual estimate in a single subcostal view with an estimated ejection fraction in the range of 60-65%. PERICARDIUM There is a large circumferential pericardial effusion with near complete diastolic collapse of the right ventricle with noted interventricular dependence and respiratory variation of mitral inflow on pulse wave Doppler evaluation. 03/23 pt went back into afib with RVR last pm , requiring amiodarone back into NSR at this time, scheduled for surgery this am surgery: Procedure: Right thoracoscopic exploration Drainage of pericardial effusion and right pleural effusion 03/24 pt was on 8 liters 02 last evening, now down to 5 liters CXR shows some volume overload/ dose of lasix IV given chest tube drained > 300 serous drainage in 12hrs / no air leak noted add low dose BB, change amiodarone po dose flomax for urinary retention / check UA PT/ OOB / transfer to stepdown unit add lovenox bid, then resume eliquis after chest tubes dc Objective: Vital Signs - 24 hr 03/23/18 12:00 03/23/18 15:00 03/23/18 15:59 Temperature 97.8 F 97.6 F Pulse Rate 75 74 81 Respiratory Rate 20 20 17 Blood Pressure 162/74 H 144/84 H Pulse Oximetry 96 98 03/23/18 16:00 03/23/18 19:00 03/23/18 20:00 Temperature 98.3 F Pulse Rate 74 Respiratory Rate 18 Blood Pressure 115/74 Pulse Oximetry 94 L 95 93 L 03/23/18 20:14 03/23/18 23:00 03/24/18 00:00 Temperature 98.3 F Pulse Rate 75 94 H Respiratory Rate 22 16 Blood Pressure 129/87 Pulse Oximetry 95 94 L 93 L 03/24/18 00:11 03/24/18 03:00 03/24/18 04:00 Temperature 98.5 F Pulse Rate 115 H 109 H Respiratory Rate 20 16 16 Blood Pressure 126/73 Pulse Oximetry 94 L 94 L 03/24/18 07:00 03/24/18 08:00 03/24/18 08:31 Temperature 98.1 F Pulse Rate 133 H 103 H 119 H Respiratory Rate 19 19 18 Blood Pressure 116/78 103/69 Pulse Oximetry 96 96 03/24/18 08:36 03/24/18 08:47 Temperature Pulse Rate Respiratory Rate 18 Blood Pressure Pulse Oximetry 97 GENERAL: A&O x 3 SKIN: Warm and dry. sternal incision intact and well approximated HEAD: Normocephalic. EYES: No scleral icterus. No injection or drainage. NECK: Supple, trachea midline. No JVD or lymphadenopathy. CARDIOVASCULAR: irregular rate and rhythm without murmurs, gallops, or rubs. RESPIRATORY: Breath sounds equal bilaterally. No accessory muscle use. diminished in bases R>L/ chest x 2 no air leak GASTROINTESTINAL: Abdomen soft, non-tender, nondistended. MUSCULOSKELETAL: No cyanosis, or edema. BACK: Nontender without obvious deformity. No CVA tenderness. Labs: Laboratory Results - last 12 hr 03/24/18 03/24/18 03/24/18 02:58 02:58 02:58 WBC 9.8 RBC 3.60 L Hgb 11.0 L Hct 31.9 L MCV 88.8 MCH 30.6 MCHC 34.4 RDW 13.6 Plt Count 302 MPV 9.1 Neut % (Auto) 83.4 H Lymph % (Auto) 10.0 [place] % (Auto) 5.9 Eos % (Auto) 0.5 Baso % (Auto) 0.2 Neut # (Auto) 8.2 H Lymph # (Auto) 1.0 [place] # (Auto) 0.6 Eos # (Auto) 0.0 Baso # (Auto) 0.0 WBC Differential . Differential Comment Auto diff final Sodium 142 Potassium 3.8 D Chloride 107 Carbon Dioxide 23.9 Anion Gap 11 BUN 22 H Creatinine 1.09 Estimated GFR 67 L Random Glucose 126 H Calcium 7.5 L D Phosphorus 3.2 Result Diagrams: 03/24/18 02:58 03/24/18 02:58 Telemetry: afib - Plan (1) Status post creation of pericardial window Plan: keep to suction (3) Hyperlipidemia Plan: hold BB and losartan (4) S/P CABG x 3 Plan: resume ASA post surgery , resume BB (5) Acute pericardial effusion Plan: for pericardial and pleural fluid drainage today (6) Hypertension (7) Diabetes mellitus Plan: insulin sliding scale diabetic diet (8) Afib Plan: start lovenox change to po amiodarone low dose BB (3) Hyperlipidemia Qualifiers: (6) Hypertension Qualifiers: (7) Diabetes mellitus Qualifiers: Diabetes mellitus type: type 2
[2018-03-24] MEDS ORDERED: Metoprolol Tartrate 25 MG Tablet PO ONE (10:24)
[2018-03-24] MEDS: Metoprolol Tartrate 25 MG Tablet PO SCH (20:26)
[2018-03-24] MEDS: Docusate Sodium 100 MG Capsule PO SCH (20:27)
[2018-03-25 04:44] LABS: Calcium 7.5 mg/dL (8.5-10.1); Carbon Dioxide 28.3 meq/L (21.0-32.0); Magnesium 1.6 mg/dL (1.5-2.5); Potassium 4.2 meq/L (3.5-5.1)
--- NOTE | 2018-03-25 05:58 | XR ---
EXAM DATE: 03/25/2018 6:00 AM EDT AGE/SEX: 67 years / Male INDICATIONS: Shortness of breath, difficulty breathing for 2 days CLINICAL DATA: This is the patient's initial encounter. Patient reports that signs and symptoms have been present for 2 days and indicates a pain score of 5/10. MEDICAL/SURGICAL HISTORY: Cardiovascular disease. CABG. COMPARISON: [facility], CHEST 1V SINGLE AP, 03/24/2018. . FINDINGS: The cardiac silhouette is enlarged in transverse diameter. Median sternotomy wires are present. A rig ht chest tube is in place. There is no evidence of pneumothorax. There is left lower lobe atelectasis versus pneumonia. A small left sided effusion is present. CONCLUSION: Cardiomegaly. Left lower lobe atelectasis versus pneumonia. There has been no significant change when compared to the prior exam. Electronically signed by: Errol Briones MD 03/25/2018 5:57 AM EDT
[2018-03-25] MEDS: Insulin NovoLOG Aspart Correctional Sugar Inj SQ SCH ×3 (08:05→16:09)
[2018-03-25] MEDS: Enoxaparin Inj 40 MG/0.4 ML Syringe SQ SCH (08:44)
[2018-03-25] MEDS: Senna/Docusate Sodium 8.6/50 MG Tablet PO SCH (08:45)
[2018-03-25] MEDS: Docusate Sodium 100 MG Capsule PO SCH (08:45)
[2018-03-25] MEDS: Metoprolol Tartrate 25 MG Tablet PO SCH (08:45)
[2018-03-25] MEDS: Multivitamin/Minerals Therapeutic Tablet PO SCH (08:45)
[2018-03-25] MEDS: Amiodarone 200 MG Tablet PO SCH (08:45)
[2018-03-25] MEDS: Mag Sulf 1 gm/100 ml Premix 100 ML IV.SIG SCH ×2 (08:50→09:01)
[2018-03-25] MEDS: Polyethylene Glycol 3350 17 GM Packet PO SCH (08:50)
--- NOTE | 2018-03-25 09:50 | P.PNCV ---
- Note Subjective/Hospital Course: 67-year-old male patient of Dr. Milena Sanchez, Dr. Gene Rondon in [place], who recently underwent coronary artery bypass grafting on 2017. He had a POTTER to the LAD, saphenous vein graft to the PDA, saphenous vein graft to the diagonal-1 after the patient was electively admitted with unstable angina. Admission date was 03/04/2018, discharged on 03/10/2018; no immediate postop complications. He did; however, have episodes of atrial fibrillation and was discharged with a 2-week dose of amiodarone; also, metoprolol and Eliquis. He has been taking his Eliquis as directed. His last dose was yesterday. During the course of his admission, he did have some small bilateral effusions. The right was greater than the left, but there was not enough fluid apparently to drain and/or would be some type of complications. He was discharged home on room air. He presented to the hospital in [place] with 3 -4 day history of shortness of breath, some orthopnea, some paroxysmal nocturnal dyspnea. They did do lab work which did show his BNP of greater than 1700. They did a CT chest, which ruled out pulmonary emboli; however, he had a moderate to large right effusion, small to moderate left pleural effusion. It also noted a large pericardial effusion with collapse of the right ventricle. The patient was transferred to our facility from [place] for further evaluation. The patient currently remains on 2 liters nasal cannula. His O2 saturation is 96%. He is in normal sinus rhythm. EKG is pending. PAST MEDICAL HISTORY: Includes coronary artery disease, prior [place], diabetes mellitus, hyperlipidemia, tobacco abuse, ejection fraction preop was 45%. Echo 03/22 Normal left ventricular size. The left ventricular systolic function is normal by visual estimate in a single subcostal view with an estimated ejection fraction in the range of 60-65%. PERICARDIUM There is a large circumferential pericardial effusion with near complete diastolic collapse of the right ventricle with noted interventricular dependence and respiratory variation of mitral inflow on pulse wave Doppler evaluation. 03/23 pt went back into afib with RVR last pm , requiring amiodarone back into NSR at this time, scheduled for surgery this am surgery: Procedure: Right thoracoscopic exploration Drainage of pericardial effusion and right pleural effusion 03/24 pt was on 8 liters 02 last evening, now down to 5 liters CXR shows some volume overload/ dose of lasix IV given chest tube drained > 300 serous drainage in 12hrs / no air leak noted add low dose BB, change amiodarone po dose flomax for urinary retention / check UA PT/ OOB / transfer to stepdown unit add lovenox bid, then resume eliquis after chest tubes dc 03/25 chest tube drained 70cc/ 12 hrs , 60cc this am eval for removal this afternoon after pt has ambulated CXR noted still has some atelectasis / small left effusion will give dose of IV lasix, continue pulm toileting will need to resume eliquis when chest tube removed Objective: Vital Signs - 24 hr 03/24/18 10:27 03/24/18 11:00 03/24/18 13:22 Temperature 97.9 F Pulse Rate 120 H 101 H 98 H Respiratory Rate 20 18 Blood Pressure 139/58 L Pulse Oximetry 95 95 03/24/18 14:02 03/24/18 14:04 03/24/18 15:00 Temperature 98.2 F Pulse Rate 101 H 84 Respiratory Rate 20 18 Blood Pressure 109/61 Pulse Oximetry 97 03/24/18 16:00 03/24/18 17:00 03/24/18 18:00 Temperature Pulse Rate 91 H 98 H 109 H Respiratory Rate Blood Pressure Pulse Oximetry 03/24/18 19:00 03/24/18 20:00 03/24/18 20:01 Temperature 98.6 F Pulse Rate 95 H 90 80 Respiratory Rate 16 14 Blood Pressure 120/56 L Pulse Oximetry 93 L 93 L 03/24/18 21:00 03/24/18 22:00 03/24/18 23:00 Temperature 97.6 F Pulse Rate 88 86 76 Respiratory Rate 18 Blood Pressure 101/61 Pulse Oximetry 92 L 03/25/18 00:00 03/25/18 03:00 03/25/18 04:00 Temperature 98.4 F Pulse Rate 80 74 Respiratory Rate 18 18 Blood Pressure 127/62 Pulse Oximetry 92 L 03/25/18 06:00 03/25/18 07:00 03/25/18 08:25 Temperature 97.9 F Pulse Rate 68 71 68 Respiratory Rate 16 16 Blood Pressure 121/58 L Pulse Oximetry 94 L 98 GENERAL: A&O x 3 SKIN: Warm and dry. sternal incision intact and well approximated HEAD: Normocephalic. EYES: No scleral icterus. No injection or drainage. NECK: Supple, trachea midline. No JVD or lymphadenopathy. CARDIOVASCULAR: irregular rate and rhythm without murmurs, gallops, or rubs. RESPIRATORY: Breath sounds equal bilaterally. No accessory muscle use. diminished in bases L>R , chest tube to wall suction, no air leak GASTROINTESTINAL: Abdomen soft, non-tender, nondistended. MUSCULOSKELETAL: No cyanosis, or edema. BACK: Nontender without obvious deformity. No CVA tenderness. GENERAL: SKIN: Warm and dry. HEAD: Normocephalic. EYES: No scleral icterus. No injection or drainage. NECK: Supple, trachea midline. No JVD or lymphadenopathy. CARDIOVASCULAR: Regular rate and rhythm without murmurs, gallops, or rubs. RESPIRATORY: Breath sounds equal bilaterally. No accessory muscle use. GASTROINTESTINAL: Abdomen soft, non-tender, nondistended. MUSCULOSKELETAL: No cyanosis, or edema. BACK: Nontender without obvious deformity. No CVA tenderness. Labs: Laboratory Results - last 12 hr 03/22/18 03/25/18 14:25 03:56 Sodium 139 Potassium 4.2 Chloride 104 Carbon Dioxide 28.3 Anion Gap 7 BUN 18 Creatinine 0.95 Estimated GFR 79 L Random Glucose 118 H Calcium 7.5 L Magnesium 1.6 MTS Gel Crossmatch See Detail Result Diagrams: 03/24/18 02:58 03/25/18 03:56 Telemetry: afib - Plan (1) Status post creation of pericardial window Plan: keep to suction eval for removal later today (3) Hyperlipidemia Plan: hold BB and losartan (4) S/P CABG x 3 Plan: ASA, BB, statin continue pulm toileting possible dc in am (5) Acute pericardial effusion Plan: for pericardial and pleural fluid drainage today (6) Hypertension (7) Diabetes mellitus Plan: insulin sliding scale diabetic diet resume metformin (8) Afib Plan: lovenox change to po amiodarone low dose BB rate improved, resume eliquis after chest tubes removed (3) Hyperlipidemia Qualifiers: (6) Hypertension Qualifiers: (7) Diabetes mellitus Qualifiers: Diabetes mellitus type: type 2
--- NOTE | 2018-03-25 14:22 | P.DS ---
Date of admission: 03/22/18 12:35 Primary care physician: No Primary Care Physician Attending physician on discharge: Juana Garcia Anticipated date of discharge: 03/26/18 Brief History from admission: 67-year-old male patient of Dr. Milena Sanchez, Dr. Gene Rondon in [place], who recently underwent coronary artery bypass grafting on 2017. He had a POTTER to the LAD, saphenous vein graft to the PDA, saphenous vein graft to the diagonal-1 after the patient was electively admitted with unstable angina. Admission date was 03/04/2018, discharged on 03/10/2018; no immediate postop complications. He did; however, have episodes of atrial fibrillation and was discharged with a 2-week dose of amiodarone; also, metoprolol and Eliquis. He has been taking his Eliquis as directed. His last dose was yesterday. During the course of his admission, he did have some small bilateral effusions. The right was greater than the left, but there was not enough fluid apparently to drain and/or would be some type of complications. He was discharged home on room air. He presented to the hospital in [place] with 3 -4 day history of shortness of breath, some orthopnea, some paroxysmal nocturnal dyspnea. They did do lab work which did show his BNP of greater than 1700. They did a CT chest, which ruled out pulmonary emboli; however, he had a moderate to large right effusion, small to moderate left pleural effusion. It also noted a large pericardial effusion with collapse of the right ventricle. The patient was transferred to our facility from [place] for further evaluation. The patient currently remains on 2 liters nasal cannula. His O2 saturation is 96%. He is in normal sinus rhythm. EKG is pending. PAST MEDICAL HISTORY: Includes coronary artery disease, prior RI, diabetes mellitus, hyperlipidemia, tobacco abuse, ejection fraction preop was 45%. DS: Diagnosis - Discharge Diagnosis (1) Status post creation of pericardial window Status: Acute (2) Unstable angina Status: Acute (3) Hyperlipidemia Status: Chronic (4) S/P CABG x 3 Status: Acute (5) Acute pericardial effusion Status: Acute (6) Hypertension Status: Chronic (7) Diabetes mellitus Status: Chronic (8) Afib Status: Acute DS: Medications - Discharge Medications Prescriptions: amiodarone 200 mg PO Q12HR #28 tab hydrocodone-acetaminophen [[place]] 1 tab PO Q6H PRN #12 tab PRN Reason: Acute Pain tamsulosin 0.4 mg PO DAILY #30 cap DS: Summary Hospital Course: 03/23 pt went back into afib with RVR last pm , requiring amiodarone back into NSR at this time, scheduled for surgery this am surgery: Procedure: Right thoracoscopic exploration Drainage of pericardial effusion and right pleural effusion 03/24 pt was on 8 liters 02 last evening, now down to 5 liters CXR shows some volume overload/ dose of lasix IV given chest tube drained > 300 serous drainage in 12hrs / no air leak noted add low dose BB, change amiodarone po dose flomax for urinary retention / check UA PT/ OOB / transfer to stepdown unit add lovenox bid, then resume eliquis after chest tubes dc 03/25 chest tube drained 70cc/ 12 hrs , 60cc this am eval for removal this afternoon after pt has ambulated CXR noted still has some atelectasis / small left effusion will give dose of IV lasix, continue pulm toileting will need to resume eliquis when chest tube removed chest tubes dc without difficulty eval for dc home in am dc lovenox, and resume eliquis - Time Spent with Patient Total time spent providing and/or coordinating discharge services: Greater than 30 minutes Exam Vital signs: Vital Signs 03/24/18 15:00 03/24/18 16:00 03/24/18 17:00 Temperature 98.2 F Pulse Rate 84 91 H 98 H Respiratory Rate 18 Blood Pressure 109/61 Pulse Oximetry 97 03/24/18 18:00 03/24/18 19:00 03/24/18 20:00 Temperature 98.6 F Pulse Rate 109 H 95 H 90 Respiratory Rate 16 Blood Pressure 120/56 L Pulse Oximetry 93 L 03/24/18 20:01 03/24/18 21:00 03/24/18 22:00 Temperature Pulse Rate 80 88 86 Respiratory Rate 14 Blood Pressure Pulse Oximetry 93 L 03/24/18 23:00 03/25/18 00:00 03/25/18 03:00 Temperature 97.6 F 98.4 F Pulse Rate 76 80 74 Respiratory Rate 18 18 Blood Pressure 101/61 127/62 Pulse Oximetry 92 L 92 L 03/25/18 04:00 03/25/18 06:00 03/25/18 07:00 Temperature 97.9 F Pulse Rate 68 71 Respiratory Rate 18 16 Blood Pressure 121/58 L Pulse Oximetry 94 L 03/25/18 08:00 03/25/18 08:25 03/25/18 09:00 Temperature Pulse Rate 82 68 82 Respiratory Rate 16 Blood Pressure Pulse Oximetry 98 03/25/18 10:00 03/25/18 11:00 03/25/18 12:00 Temperature 98.0 F Pulse Rate 84 68 74 Respiratory Rate 16 Blood Pressure 107/62 Pulse Oximetry 93 L 03/25/18 13:00 03/25/18 14:00 Temperature Pulse Rate 75 84 Respiratory Rate Blood Pressure Pulse Oximetry Intake & Output 03/24/18 03/25/18 03/25/18 18:59 06:59 18:59 Intake Total 1450 / 1450 480 / 480 200 / 200 Output Total 1100 / 1100 890 / 890 Balance 350 / 350 -410 / -410 200 / 200 Weight 88 kg Intake: IV 850 / 850 200 / 200 Cordarone Inj 450 MG In D5W Inj 250 / 250 241 ML @ 1 MG/MIN 33.33 mls/hr IV.CONT TITRATE PRN Rx#: [id number] Magnesium Sulfate 1 gm/D5W 100 200 / 200 ml Premix 100 ML @ 100 mls/hr IV.SIG Q1H [facility] Rx#:[id number] Ancef Inj 1,000 MG In NS Inj 100 / 100 100 ML @ 200 mls/hr IV.SIG Q8H [facility] Rx#:[id number] Oral 600 / 600 480 / 480 Output: Urine 950 / 950 820 / 820 Pleural Fluid 70 / 70 Chest Tube Drainage 150 / 150 Right 150 / 150 - Constitutional no acute distress - Routine HEENT Exam Head: Present: normocephalic Eye: Present: EOMI, normal accommodation - Routine Neck Exam Present: supple, full ROM - Routine Chest/Breast/Axilla Exam Chest wall: Present: tenderness Comments: sternal incision intact and well approximated dressing over pericardial drainage vaseline dressing to right chest - Routine Respiratory Exam Comments: diminished left lower lobe - Routine Cardiovascular Exam Present: S1, S2, irregularly irregular - Routine Extremities Exam Present: full ROM, pulses intact, normal capillary refill - Routine Skin Exam Present: wounds Comments: sternal incision intact and well approximated Results Procedures completed during hospitalization: Date of procedure: 03/23/18 Procedure: Right thoracoscopic exploration Drainage of pericardial effusion and right pleural effusion Labs on day of discharge: Labs from last 24 hours 03/25/18 03/25/18 03/24/18 10:50 03:56 19:53 Sodium 139 Potassium 4.2 Chloride 104 Carbon Dioxide 28.3 Anion Gap 7 BUN 18 Creatinine 0.95 Estimated GFR 79 L POC Glucose 166 H 148 H Random Glucose 118 H Calcium 7.5 L Magnesium 1.6 MTS Gel Crossmatch 03/24/18 03/22/18 15:51 14:25 Sodium Potassium Chloride Carbon Dioxide Anion Gap BUN Creatinine Estimated GFR POC Glucose 146 H Random Glucose Calcium Magnesium MTS Gel Crossmatch See Detail - Impressions ITS Impressions Chest X-Ray 03/25/18 06:00 CONCLUSION: Cardiomegaly. Left lower lobe atelectasis versus pneumonia. There has been no significant change when compared to the prior exam. ECHO Limited echocardiographic study. There is a large circumferential pericardial effusion with near complete diastolic collapse of the right ventricle with noted interventricular dependence and respiratory variation of mitral inflow on pulse wave doppler evaluatinon. These features are consistent with hemodynamically significant pericardial effusion and tamponade physiology. BP: / HR: Rhythm: Sinus Technical Quality: Technically difficult study FINDINGS LEFT VENTRICLE Normal left ventricular size. The left ventricular systolic function is normal by visual estimate in a single subcostal view with an estimated ejection fraction in the range of 60-65%. PERICARDIUM There is a large circumferential pericardial effusion with near complete diastolic collapse of the right ventricle with noted interventricular dependence and respiratory variation of mitral inflow on pulse wave doppler evaluatinon. Discharge Plan - Discharge Disposition Patient Disposition: W/Home Health Service - Discharge Condition Condition: Good - Discharge Order Discharge Orders: Discharge Order (Routine); Ordered 03/26/18 Ordered By: Delores Hayes - Discharge Details Anticipated Discharge Date: 03/26/18 Discharge Comment: dc home after chest xray resulted and cleared by Dr Garcia - Physicians Team Primary Care Provider: Primary Care Physici,No Attending Provider: Juana Garcia Other Providers: [employer] ; [facility]
[2018-03-25 16:25] VITALS: RESP 16
[2018-03-26] MEDS: Amiodarone 200 MG Tablet PO SCH ×2 (00:28→08:18)
[2018-03-26] MEDS: Docusate Sodium 100 MG Capsule PO SCH ×2 (00:29→08:18)
[2018-03-26] MEDS: Senna/Docusate Sodium 8.6/50 MG Tablet PO SCH ×2 (00:29→09:17)
[2018-03-26] MEDS: Insulin NovoLOG Aspart Correctional Sugar Inj SQ SCH ×2 (00:29→08:17)
[2018-03-26] MEDS: Metoprolol Tartrate 25 MG Tablet PO SCH ×2 (00:31→08:17)
--- NOTE | 2018-03-26 03:40 | XR ---
EXAM DATE: 03/26/2018 6:00 AM EDT AGE/SEX: 67 years / Male INDICATIONS: Shortness of breath, possible pneumothorax. CLINICAL DATA: This is the patient's subsequent encounter. Patient reports that signs and symptoms h ave been present for 3 days and indicates a pain score of 3/10. MEDICAL/SURGICAL HISTORY: Cardiovascular disease. CABG. COMPARISON: C, CHEST 1V SINGLE AP, 03/25/2018. . FINDINGS: Interval removal of right thoracostomy tube. No evidence of pneumothorax. Persistent bibasilar infilt rates, left worse than right. Cardiac contours are unchanged. CONCLUSION: Thoracostomy tube removal. No pneumothorax. Persistent basilar infiltrates. Electronically signed by: Jeremias Singh MD 03/26/2018 3:38 AM EDT
[2018-03-26 05:14] VITALS: O2SAT 94
[2018-03-26 07:42] LABS: Calcium 8.1 mg/dL (8.5-10.1); Carbon Dioxide 26.3 meq/L (21.0-32.0); Magnesium 1.7 mg/dL (1.5-2.5); Potassium 4.6 meq/L (3.5-5.1)
[2018-03-26] MEDS: Multivitamin/Minerals Therapeutic Tablet PO SCH (08:17)
[2018-03-26] MEDS: Polyethylene Glycol 3350 17 GM Packet PO SCH (08:18)
[2018-03-26 09:28] VITALS: BP 130/62; TEMP 97.8
[2018-03-26 10:01] VITALS: PULSE 86
== END 2018-03-26 10:39 | disposition home health service (06) ==
LOC: NEPE 10:57 → NEDA 12:35 → HCVI 13:47 → NEDA 13:47 → HCPC 03-24 14:34
PROVIDERS: ADMIT Thoracic Surgery (Cardiothoracic Vascular Surgery); ATTEND Thoracic Surgery (Cardiothoracic Vascular Surgery)